=== PATIENT | female | born 1960 | race Caucasian/White ===

== ENCOUNTER 2019-05-30 08:58 | Outpatient (CLI) | payer MEDICARE, SELFPAY ==
--- NOTE | ~2019-05-30 | MM_ITS ---
EXAMINATION: MM screening wilma BI w siddharth HISTORY: Screening mammogram TECHNIQUE: Craniocaudal and mediolateral oblique 3-D tomosynthesis images were obtained and synthetic 2-D images were generated. CAD analysis was submitted and interpreted. COMPARISON: Comparison to multiple prior studies sequentially, with oldest reviewed study dated 10/19. BREAST PARENCHYMAL COMPOSITION: There are scattered areas of fibroglandular density. FINDINGS: There is no evidence of suspicious mass, calcification, or architectural distortion to sugg est malignancy in either breast. There has been no suspicious interval change. IMPRESSION: 1. No mammographic evidence of malignancy. 2. Recommend routine screening mammography in one year. BI-RADS Category 1: Negative Reviewed, dictated and finalized at location A. ER PACKER
== END 2019-05-30 08:59 | disposition home or self-care (01) ==
LOC: ANHIMG 09:03
PROVIDERS: PCP Internal Medicine Gastroenterology; Visit Provider Internal Medicine Hematology & Oncology
DX: Z12.31 Encounter for screening mammogram for malignant neoplasm of breast (principal)
CPT/HCPCS: 77063; 77067

== ENCOUNTER 2019-05-30 09:32 | Outpatient (CLI) | payer MEDICARE, MEDICAID, SELFPAY ==
[2019-05-30 09:45] LABS: Basophils Absolute Auto 0.1 K/mm3 (0.0-0.1); Basophils Percent Auto 0.8 % (0.2-1.2); Eosinophils Absolute Auto 0.3 K/mm3 (0-0.3); Eosinophils Percent Auto 3.5 % (0-4.4); Hematocrit 41.1 % (37.0-47.0); Immature Granulocyte Absolute 0.03 K/mm3 (0.00-0.031); Immature Granulocyte Percent A 0.3 % (0-0.5); Lymphocytes Absolute Auto 2.97 K/mm3 (0.9-3.2); Lymphocytes Percent Auto 34.2 % (18.3-44.2); Mean Corpuscular HGB Conc 31.6 g/dl (32-36); Mean Corpuscular Hemoglobin 30.7 pg (26-34); Mean Corpuscular Volume 96.9 fl (80-100); Mean Platelet Volume 8.9 fl (7.4-10.4); Neutrophils Absolute Auto 4.4 K/mm3 (1.3-6.7); Neutrophils Percent Auto 50.2 % (45.5-73.1); Platelet Count Result 358 k/mm3 (150-375); Red Blood Count 4.24 M/mm3 (4.2-5.4); Red Cell Distribution Width 14.2 % (11.5-14.5); White Blood Count 8.7 K/mm3 (4.5-10.0)
[2019-05-30 11:29] LABS: Alanine Aminotransferase 15 U/L (4-35); Albumin Level 4.3 g/dL (3.5-5.1); Alkaline Phosphatase 63 U/L (38-126); Aspartate Amino Transferase 21 U/L (14-36); Bilirubin,Total 0.4 mg/dL (0.2-1.3); Blood Urea Nitrogen 17 mg/dL (7-17); Calcium 9.6 mg/dL (8.4-10.2); Carbon Dioxide 34 mmol/L (22-30); Chloride 100 mmol/L (98-107); Estimated Glomerular Filt Rate > 60; Glucose 86 mg/dL (65-105); Potassium 3.7 mmol/L (3.4-5.0); Sodium 138 mmol/L (137-145)
[2019-06-04 21:17] LABS: CA 27.29 31 U/mL (<38)
== END 2019-05-30 09:33 | disposition home or self-care (01) ==
PROVIDERS: PCP Internal Medicine Gastroenterology; Visit Provider Internal Medicine Hematology & Oncology
DX: C50.511 Malignant neoplasm of lower-outer quadrant of right female breast (principal); Z17.0 Estrogen receptor positive status [ER+]
CPT/HCPCS: 36415; 80053; 85025; 86300

== ENCOUNTER 2019-06-10 09:50 | Outpatient (CLI) | payer MEDICARE, MEDICAID, SELFPAY ==
--- NOTE | ~2019-06-10 | MR_ITS ---
EXAMINATION: MR femur RT wo/w con DATE: 06/10/2019 12:12 INDICATION: Breast cancer presenting with a soft tissue lesion at the anterolateral proximal right th igh. TECHNIQUE: Magnetic resonance imaging (MRI) of the proximal to mid right thigh/femur was performed wi thout intravenous contrast. A marker was placed over the mass. Sequences included axial, sagittal an d coronal T1-weighted FSE and fluid sensitive FSE STIR, axial T1-weighted FS FSE and post contrast ax ial and sagittal T1-weighted FS FSE. COMPARISON: Ultrasound dated 01/14/2019 FINDINGS: The marker indicating the mass of concern overlies the right tensor fascia shivam muscle belly which as ymmetrically enlarged relative to the contralateral left sided muscle belly. This is been reported as potential sequela of underlying abductor tendon tear. There is a chronic tear of the right gluteus m inimus tendon with heterotopic ossification at the anterior margin of the footplate of the tendon whi ch appears thickened distally. There is prominent fatty atrophy of the gluteus minimus muscle belly a lso consistent with chronic tear. There appears be a partial tear of the anterior gluteus medius tend on without associated muscular atrophy. There is a small likely intramuscular ganglion cyst with a th in peripheral rim of enhancement extending 2.5 cm inferiorly from the site of the gluteus minimus ten don tear into the proximal vastus lateralis musculature where it measures up to 10 x 8 mm in maximal transaxial dimensions. No solid enhancing soft tissue component or other abnormally enhancing lesions identified. The ganglion cyst also underlies the marker indicating the mass of concern but is likely too small given its depth to be discernible by physical exam. No right hip joint effusion. Bone magdalena ow signal is normal throughout.. IMPRESSION: 1. 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 2. 2.5 x 1.0 x 0.8 cm peripheral enhancing likely ganglion cyst in the proximal vastus lateralis musc le which appears to originate at the site of the tendon tear, likely too small and deep to represent the palpable abnormality of concern. No enhancing solid soft tissue component or other concerning enh ancing masses identified. Reviewed, dictated and finalized at location A. IMPRESSION: 1. 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 2. 2.5 x 1.0 x 0.8 cm peripheral enhancing likely ganglion cyst in the proximal vastus lateralis muscle which appears to originate at the site of the tendon t ear, likely too small and deep to represent the palpable abnormality of concern . No enhancing solid soft tissue component or other concerning enhancing masses identified.
[2019-06-10 11:03] LABS: Estimated Glomerular Filt Rate > 60
== END 2019-06-10 09:51 | disposition home or self-care (01) ==
PROVIDERS: PCP Internal Medicine Gastroenterology; Visit Provider Internal Medicine Gastroenterology
DX: M79.9 Soft tissue disorder, unspecified (principal)
CPT/HCPCS: 36415; 73720; A9577

== ENCOUNTER 2019-12-16 08:42 | Outpatient (CLI) | payer MEDICARE, MEDICAID, SELFPAY ==
[2019-12-16 09:00] LABS: Basophils Absolute Auto 0.1 K/mm3 (0.0-0.1); Basophils Percent Auto 1.1 % (0.2-1.2); Eosinophils Absolute Auto 0.3 K/mm3 (0-0.3); Eosinophils Percent Auto 4.6 % (0-4.4); Hematocrit 38.1 % (37.0-47.0); Hemoglobin 12.4 g/dL (12.0-15.0); Immature Granulocyte Absolute 0.02 K/mm3 (0.00-0.031); Immature Granulocyte Percent A 0.3 % (0-0.5); Lymphocytes Absolute Auto 2.76 K/mm3 (0.9-3.2); Lymphocytes Percent Auto 45.2 % (18.3-44.2); Mean Corpuscular HGB Conc 32.5 g/dl (32-36); Mean Corpuscular Volume 95.3 fl (80-100); Monocytes Absolute Auto 0.6 K/mm3 (0.1-0.6); Monocytes Percent Auto 10.5 % (2.6-8.5); Neutrophils Absolute Auto 2.3 K/mm3 (1.3-6.7); Neutrophils Percent Auto 38.3 % (45.5-73.1); Platelet Count Result 266 k/mm3 (150-375); Red Cell Distribution Width 13.3 % (11.5-14.5); White Blood Count 6.1 K/mm3 (4.5-10.0)
[2019-12-16 09:53] LABS: Alanine Aminotransferase 15 U/L (4-35); Alkaline Phosphatase 48 U/L (38-126); Anion Gap 3 mmol/L (8-16); Aspartate Amino Transferase 25 U/L (14-36); Bilirubin,Total 0.3 mg/dL (0.2-1.3); Blood Urea Nitrogen 24 mg/dL (7-17); Calcium 9.5 mg/dL (8.4-10.2); Carbon Dioxide 31 mmol/L (22-30); Chloride 103 mmol/L (98-107); Estimated Glomerular Filt Rate > 60; Glucose 92 mg/dL (65-105); Potassium 4.3 mmol/L (3.4-5.0); Sodium 137 mmol/L (137-145)
== END 2019-12-16 08:43 | disposition home or self-care (01) ==
PROVIDERS: PCP Internal Medicine Gastroenterology; Visit Provider Internal Medicine Hematology & Oncology
DX: C50.511 Malignant neoplasm of lower-outer quadrant of right female breast (principal)
CPT/HCPCS: 36415; 80053; 85025; 86300

== ENCOUNTER 2019-12-19 15:37 | Outpatient (CLI) | payer MEDICARE, MEDICAID, SELFPAY ==
[2019-12-25 11:45] LABS: CA 27.29 29 U/mL (<38)
== END 2019-12-19 15:38 | disposition home or self-care (01) ==
LOC: ANHLAB 15:39
PROVIDERS: PCP Internal Medicine Gastroenterology; Visit Provider Internal Medicine Hematology & Oncology
DX: C50.511 Malignant neoplasm of lower-outer quadrant of right female breast (principal)
CPT/HCPCS: 36415; 86300

== ENCOUNTER 2020-07-16 14:51 | Outpatient (CLI) | payer MEDICARE, MEDICAID, SELFPAY ==
[2020-07-16 15:15] LABS: Basophils Absolute Auto 0.1 K/mm3 (0.0-0.1); Basophils Percent Auto 0.8 % (0.2-1.2); Eosinophils Absolute Auto 0.1 K/mm3 (0-0.3); Eosinophils Percent Auto 1.2 % (0-4.4); Hematocrit 42.1 % (37.0-47.0); Hemoglobin 13.9 g/dL (12.0-15.0); Immature Granulocyte Absolute 0.02 K/mm3 (0.00-0.031); Immature Granulocyte Percent A 0.2 % (0-0.5); Lymphocytes Absolute Auto 2.46 K/mm3 (0.9-3.2); Mean Corpuscular Hemoglobin 31.6 pg (26-34); Mean Corpuscular Volume 95.7 fl (80-100); Mean Platelet Volume 9.1 fl (7.4-10.4); Monocytes Absolute Auto 0.7 K/mm3 (0.1-0.6); Monocytes Percent Auto 7.9 % (2.6-8.5); Neutrophils Absolute Auto 5.2 K/mm3 (1.3-6.7); Neutrophils Percent Auto 60.9 % (45.5-73.1); Platelet Count Result 344 k/mm3 (150-375); Red Cell Distribution Width 13.5 % (11.5-14.5); White Blood Count 8.5 K/mm3 (4.5-10.0)
[2020-07-16 16:44] LABS: Alanine Aminotransferase 16 U/L (4-35); Albumin Level 4.7 g/dL (3.5-5.1); Alkaline Phosphatase 58 U/L (38-126); Anion Gap 5 mmol/L (8-16); Aspartate Amino Transferase 26 U/L (14-36); Bilirubin,Total 0.4 mg/dL (0.2-1.3); Blood Urea Nitrogen 20 mg/dL (7-17); Calcium 9.3 mg/dL (8.4-10.2); Carbon Dioxide 32 mmol/L (22-30); Chloride 101 mmol/L (98-107); Estimated Glomerular Filt Rate > 60; Glucose 114 mg/dL (65-105); Potassium 4.9 mmol/L (3.4-5.0); Sodium 138 mmol/L (137-145)
[2020-07-19 08:16] LABS: CA 15-3 14 U/mL (<32)
== END 2020-07-16 14:52 | disposition home or self-care (01) ==
LOC: ANHLAB 14:55
PROVIDERS: PCP Internal Medicine Gastroenterology; Visit Provider Internal Medicine Hematology & Oncology
DX: C50.511 Malignant neoplasm of lower-outer quadrant of right female breast (principal); Z17.0 Estrogen receptor positive status [ER+]
CPT/HCPCS: 36415; 80053; 85025; 86300

== ENCOUNTER 2020-07-16 15:21 | Outpatient (CLI) | payer MEDICARE, MEDICAID, SELFPAY ==
--- NOTE | ~2020-07-16 | MM_ITS ---
EXAMINATION: MM screening wilma BI w siddharth HISTORY: Screening mammogram, history of right breast cancer TECHNIQUE: Craniocaudal and mediolateral oblique 3-D tomosynthesis images were obtained and synthetic 2-D images were generated. CAD analysis was submitted and interpreted. COMPARISON: 05/30/2019, 05/14/2018, 11/10/2017, 04/24/2017 BREAST PARENCHYMAL COMPOSITION: The breasts are heterogeneously dense, which may obscure small masses . FINDINGS: There are stable lumpectomy changes in the right breast. There is no evidence of suspicious mass, calcification, or architectural distortion to suggest malignancy in either breast. There has b een no suspicious interval change. IMPRESSION: 1. No mammographic evidence of malignancy. 2. Recommend routine screening mammography in one year. BI-RADS Category 2: Benign finding(s). Reviewed, dictated and finalized at location A.
== END 2020-07-16 15:22 | disposition home or self-care (01) ==
PROVIDERS: PCP Internal Medicine Gastroenterology; Visit Provider Internal Medicine Hematology & Oncology
DX: Z12.31 Encounter for screening mammogram for malignant neoplasm of breast (principal)
CPT/HCPCS: 36415; 77063; 77067; 80053; 85025; 86300

== ENCOUNTER 2020-12-02 09:11 | Outpatient (CLI) | payer MEDICARE, MEDICAID, SELFPAY ==
--- NOTE | ~2020-12-02 | CT_ITS ---
EXAMINATION: CT lung screening DATE: 12/02/2020 09:49 INDICATION: Personal history of nicotine dependence, current smoker with 35 pack year history, histor y of breast cancer TECHNIQUE: Computed tomography (CT) of the chest was performed without intravenous contrast. The dose -length product (DLP) was 60.10 mGy-cm. Automated exposure control and iterative reconstruction techn ique were employed. COMPARISON: None FINDINGS: There is severe emphysema. There is a 10 mm spiculated nodule with eccentric calcification in the left upper lobe (image 43). There is a 12 mm cavitary nodule in the right upper lobe on image 26. There is a 6 mm nodule with eccentric calcification in the right upper lobe on image 36. Multiple additional smaller noncalcified nodules are noted. There is no pleural effusion or pneumothorax. No pathologically enlarged thoracic lymph nodes are identified. The heart size is normal. There is mild thoracic spondylosis. Severe lower cervical spondylosis is noted. IMPRESSION: 1. Lung-RADS Category 0: Incomplete: Needs comparison to prior chest CT examinations. If unavailable, would recommend follow-up CT in three months. Reviewed, dictated and finalized at location B. IMPRESSION: 1. Lung-RADS Category 0: Incomplete: Needs comparison to prior chest CT examina tions. If unavailable, would recommend follow-up CT in three months.
== END 2020-12-02 09:12 | disposition home or self-care (01) ==
PROVIDERS: PCP Internal Medicine Gastroenterology; Visit Provider Internal Medicine Hematology & Oncology
DX: Z12.2 Encounter for screening for malignant neoplasm of respiratory organs (principal); Z87.891 Personal history of nicotine dependence
CPT/HCPCS: 71271

== ENCOUNTER 2020-12-23 00:44 | Day surgery (SDC) | payer MEDICARE, MEDICAID, SELFPAY ==
[2020-12-15 14:05] VITALS: BMI 20.1
--- NOTE | 2020-12-23 07:23 | PM.HPGS ---
History of Present Illness History of Present Illness Consent: Risks, benefits, and alternatives have been discussed and questions answered. Patient agrees to proceed with procedure. Chief complaint: positive cologuard Narrative: Jes Reilly is a 60 year old female referred for colon cancer screening. She was found have a positive Cologuard test Review of Systems Review of Systems: All systems reviewed & are unremarkable except as noted in HPI and below PMFSH Past Medical History Medical History COPD (chronic obstructive pulmonary disease) Depression History of right breast cancer Hypertension Thyroid disease Surgical History Surgical History Status post right breast lumpectomy Family History Family History Father COPD (chronic obstructive pulmonary disease) Unknown Heart disease Hypertension Social History Social History Smoking packs per day: 0.5 Smoking cigarettes per day: 10.0 Years smoked: 35 Smoking pack-years: 17.50 Smoking status: Current every day smoker Tobacco type: cigarettes Alcohol intake: current Living arrangements: with family Spiritual care concerns: No Meds Home Medications and Allergies Home Medications Medication Instructions Recorded Confirmed Type albuterol sulfate 90 mcg/actuation 1 puff INHALATION Q4H PRN 07/03/19 12/23/20 History aerosol inhaler anastrozole 1 mg tablet 1 mg PO DAILY 07/03/19 12/23/20 History lisinopril 20 1 tablet PO DAILY 07/03/19 12/23/20 History mg-hydrochlorothiazide 12.5 mg tablet prednisone 5 mg tablet 5 mg PO DAILY 07/03/19 12/23/20 History acetylcysteine 200 mg INHALATION DAILY 12/15/20 12/23/20 History albuterol sulfate 2.5 mg INHALATION BID 12/15/20 12/23/20 History clonazepam 1 mg PO BID 12/15/20 12/23/20 History glycopyrrolate-formoterol [Bevespi 4.8 inh INHALATION DAILY 12/15/20 12/23/20 History Aerosphere] levothyroxine 100 mcg PO DAILY 12/15/20 12/23/20 History sertraline 100 mg PO DAILY 12/15/20 12/23/20 History Allergies Allergy/AdvReac Type Severity Reaction Status Date / Time No Known Allergies Allergy Verified 12/23/20 10:10 Exam Resp: Auscultation: clear to auscultation bilaterally Cardio: Rate: regular rate Rhythm: regular rhythm GI: GI Palp: Yes Soft to palpation and No Tenderness to palpation present (GI) Assessment and Plan Assessment and plan (1) Colon cancer screening: Code(s): Z12.11 - Encounter for screening for malignant neoplasm of colon Status: Acute Assessment and Plan: Colonoscopy with possible biopsy or polypectomy or cautery or injection of substances.
[2020-12-23 10:12] VITALS: BP 95/59; PULSE 100; RESP 18; TEMP 36.6; O2SAT 100; BMI 19.8
[2020-12-23] MEDS: LACTATED RINGERS 1,000 ML 150 ML IV CONT (10:32)
--- NOTE | 2020-12-23 10:48 | WPDANESEPPF ---
Anes - Initial Pre Proc Eval Procedure: Operation Date: 12/23/20 11:00 Proposed Procedures p Colonoscopy - Harvinder High MD Date/Time: 12/23/20 10:48 Surgeon: Harvinder High MD Pre Op Diagnosis: positive cologuard Patient Data Age: 60 Gender: F Height: 1.57 m Weight: 49.1 kg Last Vital Signs Temp 97.9 F 12/23/20 10:12 Pulse 100 12/23/20 10:12 Resp 18 12/23/20 10:12 BP 95/59 L 12/23/20 10:12 Pulse Ox 100 12/23/20 10:12 Allergies Allergy/AdvReac Type Severity Reaction Status Date / Time No Known Allergies Allergy Verified 12/23/20 10:10 Home Medications Medication Instructions Recorded Confirmed Type albuterol sulfate 90 mcg/actuation 1 puff INHALATION Q4H PRN 07/03/19 12/23/20 History aerosol inhaler anastrozole 1 mg tablet 1 mg PO DAILY 07/03/19 12/23/20 History lisinopril 20 1 tablet PO DAILY 07/03/19 12/23/20 History mg-hydrochlorothiazide 12.5 mg tablet prednisone 5 mg tablet 5 mg PO DAILY 07/03/19 12/23/20 History acetylcysteine 200 mg INHALATION DAILY 12/15/20 12/23/20 History albuterol sulfate 2.5 mg INHALATION BID 12/15/20 12/23/20 History clonazepam 1 mg PO BID 12/15/20 12/23/20 History glycopyrrolate-formoterol [Bevespi 4.8 inh INHALATION DAILY 12/15/20 12/23/20 History Aerosphere] levothyroxine 100 mcg PO DAILY 12/15/20 12/23/20 History sertraline 100 mg PO DAILY 12/15/20 12/23/20 History Patient hx anesthesia problems: none Family hx anesthesia problems: none Results Review: All pre-operative results and documents have been reviewed as part of the pre-operative evaluation. [facility] Past Medical History Medical History (Updated 12/23/20 @ 07:24 by Harvinder High MD) COPD (chronic obstructive pulmonary disease) Depression History of right breast cancer Hypertension Thyroid disease Surgical History Surgical History Status post right breast lumpectomy Family History Family History Father COPD (chronic obstructive pulmonary disease) Unknown Heart disease Hypertension Social History Social History Smoking packs per day: 0.5 Smoking cigarettes per day: 10.0 Years smoked: 35 Smoking pack-years: 17.50 Smoking status: Current every day smoker Tobacco type: cigarettes Alcohol intake: current Living arrangements: with family Spiritual care concerns: No Anes - Eval Final PreProcedure Day of Procedure 12/23/20 10:48 Patient weight: normal Heart: regular rate and rhythm Lungs: clear to auscultation Airway: Mallampati scale class II Neurological: alert and oriented Last oral intake: >/= 8 hours ASA classification: III Emergent: no Anesthetic plan: proceed Anesthesia type and monitoring: general GIVS and standard monitoring Results Review: All pre-operative results and documents have been reviewed as part of the pre-operative evaluation. Informed Consent: The patient's anesthetic plan and its attendant risks and benefits were discussed with the patient/family/POA. Questions were solicited and answers provided to the satisfaction of the patient/family/POA.
[2020-12-23 11:25] VITALS: BP 82/43; PULSE 79; RESP 27; O2SAT 100
[2020-12-23 11:35] VITALS: BP 81/44; PULSE 79; RESP 29; O2SAT 100
[2020-12-23 11:45] VITALS: BP 118/61; PULSE 78; RESP 31; O2SAT 95
== END 2020-12-23 12:06 | disposition home or self-care (01) ==
PROVIDERS: PCP Internal Medicine Gastroenterology; Visit Provider Internal Medicine Gastroenterology
PROC: 0DJD8ZZ Inspection of Lower Intestinal Tract, Via Natural or Artificial Opening Endoscopic (ICD-10-PCS; CPT 45378; principal; 2020-12-23 11:00)
DX: Z12.11 Encounter for screening for malignant neoplasm of colon (principal); R19.5 Other fecal abnormalities; J44.9 Chronic obstructive pulmonary disease, unspecified; I10 Essential (primary) hypertension; E07.9 Disorder of thyroid, unspecified; F32.9 Major depressive disorder, single episode, unspecified; Z85.3 Personal history of malignant neoplasm of breast; Z79.51 Long term (current) use of inhaled steroids; Z79.811 Long term (current) use of aromatase inhibitors; F17.210 Nicotine dependence, cigarettes, uncomplicated
CPT/HCPCS: G0121; J2704; J7120

== ENCOUNTER 2021-01-14 09:31 | Outpatient (CLI) | payer MEDICARE, MEDICAID, SELFPAY ==
[2021-01-14 09:47] LABS: Basophils Absolute Auto 0.1 K/mm3 (0.0-0.1); Basophils Percent Auto 1.4 % (0.2-1.2); Eosinophils Absolute Auto 0.6 K/mm3 (0-0.3); Eosinophils Percent Auto 7.4 % (0-4.4); Hematocrit 40.8 % (37.0-47.0); Hemoglobin 12.9 g/dL (12.0-15.0); Immature Granulocyte Absolute 0.01 K/mm3 (0.00-0.031); Immature Granulocyte Percent A 0.1 % (0-0.5); Lymphocytes Absolute Auto 2.34 K/mm3 (0.9-3.2); Lymphocytes Percent Auto 31.7 % (18.3-44.2); Mean Corpuscular HGB Conc 31.6 g/dl (32-36); Mean Corpuscular Hemoglobin 30.3 pg (26-34); Mean Corpuscular Volume 95.8 fl (80-100); Monocytes Absolute Auto 0.7 K/mm3 (0.1-0.6); Monocytes Percent Auto 9.7 % (2.6-8.5); Neutrophils Absolute Auto 3.7 K/mm3 (1.3-6.7); Neutrophils Percent Auto 49.7 % (45.5-73.1); Platelet Count Result 314 k/mm3 (150-375); Red Blood Count 4.26 M/mm3 (4.2-5.4); Red Cell Distribution Width 12.8 % (11.5-14.5); White Blood Count 7.4 K/mm3 (4.5-10.0)
[2021-01-14 10:48] LABS: Alanine Aminotransferase 14 U/L (4-35); Albumin Level 4.4 g/dL (3.5-5.1); Alkaline Phosphatase 64 U/L (38-126); Anion Gap 6 mmol/L (8-16); Aspartate Amino Transferase 28 U/L (14-36); Bilirubin,Total 0.5 mg/dL (0.2-1.3); Blood Urea Nitrogen 15 mg/dL (7-17); Calcium 9.5 mg/dL (8.4-10.2); Carbon Dioxide 37 mmol/L (22-30); Chloride 98 mmol/L (98-107); Estimated Glomerular Filt Rate > 60; Glucose 92 mg/dL (65-110); Potassium 3.6 mmol/L (3.4-5.0); Sodium 141 mmol/L (137-145)
[2021-01-18 15:05] LABS: CA 15-3 13 U/mL (<32)
== END 2021-01-14 09:32 | disposition home or self-care (01) ==
LOC: ANHLAB 09:33
PROVIDERS: PCP Internal Medicine Gastroenterology; Visit Provider Internal Medicine Hematology & Oncology
DX: C50.511 Malignant neoplasm of lower-outer quadrant of right female breast (principal)
CPT/HCPCS: 36415; 80053; 85025; 86300

== ENCOUNTER 2021-02-22 09:38 | Emergency (ER) | payer MEDICARE, MEDICAID, SELFPAY ==
[2021-02-22] VITALS (7 sets, daily range): BP systolic 103–143; BP diastolic 56–85; PULSE 76–108; RESP 16–28; TEMP 36.8; O2SAT 95–100
--- NOTE | ~2021-02-22 | XR_ITS ---
XR chest 2V 02/22/2021 09:59 Indication: Dyspnea Procedure: PA and lateral views of the chest Comparison: 06/04/2018 Findings: Heart size normal. There are a few small calcified granulomas of the lung parenchyma. No fo barbara air space disease, pulmonary edema, pleural effusion or suspected pneumothorax. The lungs are hyp erinflated which is consistent with, but not diagnostic of chronic obstructive pulmonary disease. Impression: 1: No acute cardiopulmonary disease. Reviewed, dictated and finalized at location B. ICENOW ADMINISTRATOR Impression: 1: No acute cardiopulmonary disease.
--- NOTE | 2021-02-22 09:51 | ECG_ITS ---
Measurements Intervals [place] Rate: 100 P: 87 FL: 128 QRS: 81 QRSD: 80 T: 65 QT: 324 QTc: 419 Interpretive Statements SINUS TACHYCARDIA DELAYED PRECORDIAL R/S TRANSITION NONSPECIFIC ST & T-WAVE ABNORMALITY- INF/HIGH LAT LEADS BASELINE ARTIFACT- I, II, III, AVR, AVL, AVF, V1, V3, V5-V6 BORDERLINE ECG Electronically Signed On 02-22-2021 10:40:01 INTERN BRAND by Andrew Alejandre D.O.
[2021-02-22 10:09] LABS: Basophils Absolute Auto 0.1 K/mm3 (0.0-0.1); Basophils Percent Auto 0.5 % (0.2-1.2); Eosinophils Absolute Auto 0.3 K/mm3 (0-0.3); Eosinophils Percent Auto 2.6 % (0-4.4); Hemoglobin 12.6 g/dL (12.0-15.0); Immature Granulocyte Absolute 0.04 K/mm3 (0.00-0.031); Immature Granulocyte Percent A 0.3 % (0-0.5); Lymphocytes Percent Auto 11.5 % (18.3-44.2); Mean Corpuscular HGB Conc 32.3 g/dl (32-36); Mean Corpuscular Hemoglobin 30.1 pg (26-34); Mean Corpuscular Volume 93.1 fl (80-100); Mean Platelet Volume 10.4 fl (7.4-10.4); Monocytes Absolute Auto 0.8 K/mm3 (0.1-0.6); Monocytes Percent Auto 6.3 % (2.6-8.5); Neutrophils Absolute Auto 9.6 K/mm3 (1.3-6.7); Neutrophils Percent Auto 78.8 % (45.5-73.1); Platelet Count Result 310 k/mm3 (150-375); Red Blood Count 4.19 M/mm3 (4.2-5.4); Red Cell Distribution Width 12.8 % (11.5-14.5); White Blood Count 12.2 K/mm3 (4.5-10.0)
[2021-02-22 10:26] LABS: Alanine Aminotransferase 17 U/L (4-35); Albumin Level 4.3 g/dL (3.5-5.1); Alkaline Phosphatase 78 U/L (38-126); Anion Gap 5 mmol/L (8-16); Aspartate Amino Transferase 25 U/L (14-36); Bilirubin,Total 0.5 mg/dL (0.2-1.3); Blood Urea Nitrogen 16 mg/dL (7-17); Calcium 9.3 mg/dL (8.4-10.2); Carbon Dioxide 34 mmol/L (22-30); Chloride 96 mmol/L (98-107); Estimated CRCL calculation 48 ml/min; Estimated Glomerular Filt Rate > 60; Glucose 102 mg/dL (65-110); Potassium 3.4 mmol/L (3.4-5.0); Sodium 135 mmol/L (137-145)
[2021-02-22] MEDS: methylPREDNISolone SOD SUCC 125 MG VIAL IV PUSH (12:26)
--- NOTE | 2021-02-22 12:45 | ED.SOB ---
HPI - SOB/Dyspnea General Chief Complaint: Shortness of Breath/Dyspnea Stated Complaint: SOB. Time Seen by Provider: 02/22/21 12:03 History of Present Illness HPI Narrative: Patient is a 60-year-old female who presents ER with shortness of breath. She reports she has chronic shortness of breath due to sarcoidosis. She wears 3 L of oxygen at baseline. She reports she is still able to ambulate about her house and perform her ADLs. She reports her shortness of breath worsened over the last 3 weeks. She is using her nebulizer 2 times a day and then using her other scheduled medications. No new fevers or chills or sweats. No chest pain or chest pressure. 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 She takes prednisone 5 mg daily at baseline. Patient is also reporting chronic abdominal discomfort where she feels crampy and nauseous. She sees Dr. High for this. She recently underwent colonoscopy that was unremarkable. She has not yet followed up with him. Related Data Home Medications Medication Instructions Recorded Confirmed albuterol sulfate 90 mcg/actuation 1 puff INHALATION Q4H PRN 07/03/19 12/23/20 aerosol inhaler anastrozole 1 mg tablet 1 mg PO DAILY 07/03/19 12/23/20 lisinopril 20 1 tablet PO DAILY 07/03/19 12/23/20 mg-hydrochlorothiazide 12.5 mg tablet prednisone 5 mg tablet 5 mg PO DAILY 07/03/19 12/23/20 Bevespi Aerosphere 4.8 inh INHALATION BID 12/15/20 12/23/20 acetylcysteine 200 mg INHALATION DAILY 12/15/20 12/23/20 albuterol sulfate 2.5 mg INHALATION DAILY 12/15/20 12/23/20 clonazepam 1 mg PO PRN PRN 12/15/20 12/23/20 levothyroxine 100 mcg PO DAILY 12/15/20 12/23/20 sertraline 50 mg PO DAILY 12/15/20 12/23/20 Allergies Allergy/AdvReac Type Severity Reaction Status Date / Time No Known Allergies Allergy Verified 02/22/21 12:34 Review of Systems Review of Systems: All systems reviewed & are unremarkable except as noted in HPI and below Constitutional: Constitutional: Denies chills, Reports fatigue and Denies fever(s) ENT: Denies nasal congestion and Denies sore throat Cardiovascular: Cardiovascular: Denies chest pain, Denies rapid heart rate and Denies radiating jaw, neck or arm pain Respiratory: Respiratory: Reports cough, Reports dyspnea and Reports wheezing Gastrointestinal: Gastrointestinal: Reports abdominal pain, Denies diarrhea, Reports nausea and Denies vomiting Genitourinary: Genitourinary: Denies nocturia, Denies dysuria and Denies flank pain PMFSH Past Medical History Medical History (Updated 02/22/21 @ 13:51 by Nabeel Fontenot MD) COPD (chronic obstructive pulmonary disease) Depression History of right breast cancer Hypertension Thyroid disease Surgical History Surgical History Status post right breast lumpectomy Family History Family History Father COPD (chronic obstructive pulmonary disease) Unknown Heart disease Hypertension Social History Social History Smoking packs per day: 0.5 Smoking cigarettes per day: 10.0 Years smoked: 35 Smoking pack-years: 17.50 Smoking status: Current every day smoker Tobacco type: cigarettes Alcohol intake: current Spiritual care concerns: No Exam Narrative: GENERAL: Chronically ill-appearing, well-nourished, and in no acute distress. HEAD: Normocephalic, atraumatic. ENT: Mucous membranes moist. CHEST: Scattered rhonchi/wheezing with expiration. No respiratory distress. HEART: Tachycardic and regular. Normal peripheral pulses. ABDOMEN: Soft, nontender, nondistended. EXTREMITIES: Normal range of motion. No edema. SKIN: Warm, dry, no rash. NEURO: Alert and oriented x3. PSYCH: Normal mood and affect. Course Course Emergency Course: Patient's lung sounds are clear after an hour-long breathing treatment. She feels much improved. Patient
[2021-02-22] MEDS: IPRATROPIUM BR 0.02% INH SOLN 0.5 MG/2.5 ML VIAL 1.5 MG INHALATION (12:47)
[2021-02-22] MEDS: ALBUTEROL SULFATE NEB 2.5 MG/0.5 ML INH 15 MG INHALATION (12:47)
== END 2021-02-22 14:00 | disposition home or self-care (01) ==
PROVIDERS: Emergency Medicine; Emergency Provider Emergency Medicine; PCP Internal Medicine Gastroenterology
DX: J44.1 Chronic obstructive pulmonary disease with (acute) exacerbation (principal); D86.9 Sarcoidosis, unspecified; I10 Essential (primary) hypertension; E07.9 Disorder of thyroid, unspecified; Z85.3 Personal history of malignant neoplasm of breast; R94.31 Abnormal electrocardiogram [ECG] [EKG]; R00.0 Tachycardia, unspecified; F17.210 Nicotine dependence, cigarettes, uncomplicated
CPT/HCPCS: 36415; 71046; 80053; 85025; 93005; 96374; 99284; J2930

== ENCOUNTER 2021-05-05 09:29 | Outpatient (CLI) | payer MEDICARE, MEDICAID, SELFPAY ==
--- NOTE | ~2021-05-05 | CT_ITS ---
EXAMINATION:CT diagnostic chest w con DATE: 05/05/2021 10:05 INDICATION: Lung nodule. TECHNIQUE: Computed tomography (CT) of the chest was performed with 75 mL Omnipaque 350 intravenous c ontrast. Automated exposure control and iterative reconstruction technique were employed. The dose-le ngth product (DLP) was 133.52 mGy-cm. COMPARISON: Chest CT 12/02/2020 FINDINGS: There is mild scarring at the lung apices. There is severe emphysema. There is a stable 12 mm nodule in right upper lobe. Again seen is a 5 mm nodule in right upper lobe. There is mild bronchi ectasis in the inferior lungs. There is a 9 mm nodule in left upper lobe without change. There is a 1 2 mm nodule left upper lobe without change. Calcified bilateral lung nodules are consistent with old granulomatous disease. There are a few nodules in the lungs measuring up to 5 mm, some of which have worsened. No pleural effusion. The heart size is normal. No pericardial effusion. There is mild thora cic spondylosis. IMPRESSION: 1. Lung-RADS category 3: Probably benign. Further evaluation is recommended with noncontrast low-dose chest CT in 6 months. Reviewed, dictated and finalized at location E. KDOWN PERSON IMPRESSION: 1. Lung-RADS category 3: Probably benign. Further evaluation is recommended wit h noncontrast low-dose chest CT in 6 months.
[2021-05-05 10:00] LABS: Estimated Glomerular Filt Rate > 60
== END 2021-05-05 09:30 | disposition home or self-care (01) ==
PROVIDERS: PCP Internal Medicine Gastroenterology; Visit Provider Internal Medicine Hematology & Oncology
DX: R91.1 Solitary pulmonary nodule (principal); J47.9 Bronchiectasis, uncomplicated; M47.814 Spondylosis without myelopathy or radiculopathy, thoracic region
CPT/HCPCS: 71260; Q9967

== ENCOUNTER 2021-05-05 10:16 | Outpatient (CLI) | payer MEDICARE, MEDICAID, SELFPAY ==
[2021-05-05 10:59] LABS: Basophils Absolute Auto 0.1 K/mm3 (0.0-0.1); Basophils Percent Auto 1.1 % (0.2-1.2); Eosinophils Absolute Auto 0.5 K/mm3 (0-0.3); Eosinophils Percent Auto 6.4 % (0-4.4); Hematocrit 43.2 % (37.0-47.0); Hemoglobin 13.1 g/dL (12.0-15.0); Immature Granulocyte Absolute 0.02 K/mm3 (0.00-0.031); Immature Granulocyte Percent A 0.3 % (0-0.5); Lymphocytes Absolute Auto 1.89 K/mm3 (0.9-3.2); Lymphocytes Percent Auto 26.3 % (18.3-44.2); Mean Corpuscular HGB Conc 30.3 g/dl (32-36); Mean Corpuscular Hemoglobin 29.8 pg (26-34); Mean Corpuscular Volume 98.4 fl (80-100); Mean Platelet Volume 9.4 fl (7.4-10.4); Monocytes Absolute Auto 0.6 K/mm3 (0.1-0.6); Monocytes Percent Auto 8.8 % (2.6-8.5); Neutrophils Absolute Auto 4.1 K/mm3 (1.3-6.7); Neutrophils Percent Auto 57.1 % (45.5-73.1); Platelet Count Result 324 k/mm3 (150-375); Red Blood Count 4.39 M/mm3 (4.2-5.4); Red Cell Distribution Width 14.5 % (11.5-14.5); White Blood Count 7.2 K/mm3 (4.5-10.0)
[2021-05-05 13:18] LABS: Alanine Aminotransferase 21 U/L (4-35); Albumin Level 4.4 g/dL (3.5-5.1); Alkaline Phosphatase 64 U/L (38-126); Anion Gap 3 mmol/L (8-16); Aspartate Amino Transferase 42 U/L (14-36); Bilirubin,Total 0.5 mg/dL (0.2-1.3); Blood Urea Nitrogen 22 mg/dL (7-17); Calcium 9.4 mg/dL (8.4-10.2); Carbon Dioxide 34 mmol/L (22-30); Chloride 100 mmol/L (98-107); Estimated Glomerular Filt Rate > 60; Glucose 99 mg/dL (65-110); Potassium 3.9 mmol/L (3.4-5.0); Sodium 137 mmol/L (137-145)
[2021-05-05 13:30] LABS: Free T4 Free Thyroxine 2.18 ng/mL (0.78-2.19)
[2021-05-05 13:45] LABS: Thyroid Stimulating Hormone < 0.015 uIU/mL (0.465-4.680)
[2021-05-09 07:17] LABS: CA 15-3 12 U/mL (<32)
== END 2021-05-05 10:17 | disposition home or self-care (01) ==
PROVIDERS: PCP Internal Medicine Gastroenterology; Visit Provider Internal Medicine Hematology & Oncology
DX: C50.511 Malignant neoplasm of lower-outer quadrant of right female breast (principal); E03.9 Hypothyroidism, unspecified
CPT/HCPCS: 36415; 71260; 80053; 84439; 84443; 84481; 85025; 86300; Q9967

== ENCOUNTER 2021-06-03 09:07 | Outpatient (CLI) | payer MEDICARE, MEDICAID, SELFPAY ==
--- NOTE | ~2021-06-03 | PE_ITS ---
EXAMINATION: PET skull to mid thigh DATE: 06/03/2021 11:04 INDICATION: Lung nodule. TECHNIQUE: Blood glucose level was 100 mg/dL. 8.552 mCi of 18-fluorodeoxyglucose (18-FDG) was adminis tered i.v. Low dose computed tomography (CT) images were acquired from the base of the brain to the p roximal thighs for attenuation correction and anatomic localization. Automated exposure control was e mployed. Dose-length product (DLP) was 206 mGy-cm. Positron emission tomography (PET) images were acq uired in the same distribution. COMPARISON: Chest CT 05/05/2021, 12/02/2020 FINDINGS: Head/neck: There is increased activity in the pharynx, paraspinal muscles, and glottis without abnorm al CT correlate, likely physiologic. There is increased activity in the area of the left carotid spac e and left high internal jugular lymph node chain with maximum SUV of 4.4. Chest: There is mild scarring at the lung apices. There is severe emphysema. Calcified pulmonary nodu les are consistent with old granulomatous disease. There are a few nodules in the lungs measuring up to 12 mm in left upper lobe without increased activity. No pleural effusion. The heart size is normal . There are coronary artery calcifications. No pericardial effusion. Abdomen/pelvis/proximal thighs: The liver, gallbladder, spleen, pancreas, adrenal glands, and kidneys are normal. There are no dilated loops of bowel. There are no pathologically enlarged lymph nodes. T here is no free intraperitoneal fluid. There is no osseous malignancy. IMPRESSION: 1. Pulmonary nodules measuring up to 12 mm without increased activity. The larger nodules are stable from 12/02/20. These findings are probably benign. Further evaluation is recommended with noncontrast l ow-dose chest CT in 6 months. 2. Increased activity in the area of the left carotid space and left high internal jugular lymph node chain. It is not clear if this may represent normal vascular activity or abnormal lymph node activit y. Neck CT with contrast is recommended to better define the anatomy. 3. Severe emphysema. Reviewed, dictated and finalized at location A. CY OWNER IMPRESSION: 1. Pulmonary nodules measuring up to 12 mm without increased activity. The larg er nodules are stable from 12/02/20. These findings are probably benign. Further evaluation is recommended with noncontrast low-dose chest CT in 6 months. 2. Increased activity in the area of the left carotid space and left high inter nal jugular lymph node chain. It is not clear if this may represent normal vasc ular activity or abnormal lymph node activity. Neck CT with contrast is recomme nded to better define the anatomy. 3. Severe emphysema.
[2021-06-03 09:48] LABS: Glucose Point of Care 100 mg/dl (65-105)
== END 2021-06-03 09:08 | disposition home or self-care (01) ==
PROVIDERS: PCP Internal Medicine Gastroenterology; Visit Provider Internal Medicine Hematology & Oncology
DX: R91.8 Other nonspecific abnormal finding of lung field (principal); J43.9 Emphysema, unspecified
CPT/HCPCS: 78815; A9552

== ENCOUNTER 2021-08-12 09:42 | Outpatient (CLI) | payer MEDICARE, MEDICAID, SELFPAY ==
--- NOTE | ~2021-08-12 | CT_ITS ---
EXAMINATION: CT soft tissue neck w con DATE: 08/12/2021 10:33 INDICATION: Left neck lymphadenopathy. TECHNIQUE: Computed tomography (CT) of the neck was performed with 75 mL Omnipaque 300 intravenous co ntrast. Automated exposure control and iterative reconstruction technique were employed. The dose-refugio gth product was 199.57 mGy-cm. COMPARISON: Chest CT 05/05/2021, PET CT 06/03/2021 FINDINGS: The lungs apices demonstrate severe emphysema. Calcified left lung nodules are consistent w ith old granulomatous disease. There are a few nodules in the lungs measuring up to 11 mm in right up per lobe. There are no pathologically enlarged lymph nodes. There is plaque in the proximal internal carotid arteries with 0% stenosis relative to normal distal artery lumen diameters. There is moderate cervical spondylosis. IMPRESSION: 1. No cervical lymphadenopathy. 2. Stable pulmonary nodules without increased activity on prior PET, likely benign. 3. Severe emphysema. Reviewed, dictated and finalized at location A. IMPRESSION: 1. No cervical lymphadenopathy. 2. Stable pulmonary nodules without increased activity on prior PET, likely garo ign. 3. Severe emphysema.
[2021-08-12 10:21] LABS: Estimated Glomerular Filt Rate > 60
== END 2021-08-12 09:43 | disposition home or self-care (01) ==
PROVIDERS: PCP Internal Medicine Gastroenterology; Visit Provider Internal Medicine Hematology & Oncology
DX: R91.1 Solitary pulmonary nodule (principal); R59.0 Localized enlarged lymph nodes; J43.9 Emphysema, unspecified
CPT/HCPCS: 70491; Q9967

== ENCOUNTER 2021-08-24 09:21 | Outpatient (CLI) | payer MEDICARE, MEDICAID, SELFPAY ==
--- NOTE | ~2021-08-24 | MM_ITS ---
EXAMINATION: MM screening wilma BI w siddharth HISTORY: Screening mammogram TECHNIQUE: Craniocaudal and mediolateral oblique 3-D tomosynthesis images were obtained and synthetic 2-D images were generated. CAD analysis was submitted and interpreted. COMPARISON: 07/16/2020, 05/30/2019, 05/14/2018 bilateral mammogram examinations BREAST PARENCHYMAL COMPOSITION: The breasts are heterogeneously dense, which may obscure small masses . FINDINGS: Postoperative change from right partial mastectomy for history of breast cancer is again no ifeanyi. There is no evidence of suspicious mass, calcification, or interval architectural distortion to suggest malignancy in either breast. There has been no suspicious interval change. IMPRESSION: 1. No mammographic evidence of malignancy. 2. Recommend routine screening mammography in one year. BI-RADS Category 2: Benign finding(s). Reviewed, dictated and finalized at location A.
== END 2021-08-24 09:22 | disposition home or self-care (01) ==
PROVIDERS: PCP Internal Medicine Gastroenterology; Visit Provider Internal Medicine Hematology & Oncology
DX: Z12.31 Encounter for screening mammogram for malignant neoplasm of breast (principal)
CPT/HCPCS: 77063; 77067

== ENCOUNTER 2021-09-14 09:29 | Outpatient (CLI) | payer MEDICARE, MEDICAID, SELFPAY ==
--- NOTE | ~2021-09-14 | CT_ITS ---
EXAMINATION: CT diagnostic chest wo con DATE: 09/14/2021 10:00 INDICATION: Lung nodule TECHNIQUE: Computed tomography (CT) of the chest was performed without intravenous contrast. The dose -length product (DLP) was 141.95 mGy-cm. Automated exposure control and iterative reconstruction tech [employer] were employed. COMPARISON: 06/03/2021, 05/05/2021, 12/02/2020 FINDINGS: There is severe emphysema. There are multiple stable nodules of the lungs, some of which ar e calcified. The largest measures 12 mm in the left upper lobe. There is a 5 mm nodule in the right l ower lobe on image 66 not definitely seen on the prior examination, likely infectious or inflammatory given the short interval between examinations. No pleural effusion or pneumothorax. No pathologicall y enlarged thoracic lymph nodes are identified. The heart size is normal. There is mild thoracic spon dylosis. IMPRESSION: 1. Multiple stable pulmonary nodules. Annual lung cancer screening CT is recommended. 2. Severe emphysema. Reviewed, dictated and finalized at location A. IMPRESSION: 1. Multiple stable pulmonary nodules. Annual lung cancer screening CT is recomm ended. 2. Severe emphysema.
== END 2021-09-14 09:30 | disposition home or self-care (01) ==
PROVIDERS: PCP Internal Medicine Gastroenterology; Visit Provider Internal Medicine Hematology & Oncology
DX: R91.8 Other nonspecific abnormal finding of lung field (principal); J43.9 Emphysema, unspecified
CPT/HCPCS: 36415; 71250; 80053; 85025; 86300

== ENCOUNTER 2021-09-14 10:05 | Outpatient (CLI) | payer MEDICARE, MEDICAID, SELFPAY ==
[2021-09-14 10:29] LABS: Basophils Absolute Auto 0.1 K/mm3 (0.0-0.1); Eosinophils Absolute Auto 0.2 K/mm3 (0-0.3); Eosinophils Percent Auto 2.2 % (0-4.4); Hematocrit 40.9 % (37.0-47.0); Hemoglobin 12.8 g/dL (12.0-15.0); Immature Granulocyte Absolute 0.02 K/mm3 (0.00-0.031); Immature Granulocyte Percent A 0.3 % (0-0.5); Lymphocytes Absolute Auto 1.01 K/mm3 (0.9-3.2); Lymphocytes Percent Auto 13.1 % (18.3-44.2); Mean Corpuscular HGB Conc 31.3 g/dl (32-36); Mean Corpuscular Hemoglobin 30.1 pg (26-34); Mean Corpuscular Volume 96.2 fl (80-100); Monocytes Absolute Auto 0.3 K/mm3 (0.1-0.6); Monocytes Percent Auto 3.8 % (2.6-8.5); Neutrophils Absolute Auto 6.2 K/mm3 (1.3-6.7); Neutrophils Percent Auto 79.6 % (45.5-73.1); Platelet Count Result 280 k/mm3 (150-375); Red Blood Count 4.25 M/mm3 (4.2-5.4); Red Cell Distribution Width 13.8 % (11.5-14.5); White Blood Count 7.7 K/mm3 (4.5-10.0)
[2021-09-14 14:53] LABS: Alanine Aminotransferase 22 U/L (6-35); Albumin Level 4.4 g/dL (3.5-5.1); Alkaline Phosphatase 60 U/L (38-126); Anion Gap 3 mmol/L (8-16); Aspartate Amino Transferase 28 U/L (14-36); Bilirubin,Total 0.3 mg/dL (0.2-1.3); Blood Urea Nitrogen 20 mg/dL (7-17); Calcium 9.2 mg/dL (8.4-10.2); Carbon Dioxide 34 mmol/L (22-30); Chloride 102 mmol/L (98-107); Estimated Glomerular Filt Rate > 60; Glucose 113 mg/dL (65-110); Potassium 4.1 mmol/L (3.4-5.0); Sodium 139 mmol/L (137-145)
[2021-09-17 11:31] LABS: CA 15-3 18 U/mL (<32)
== END 2021-09-14 10:06 | disposition home or self-care (01) ==
PROVIDERS: PCP Internal Medicine Gastroenterology; Visit Provider Internal Medicine Hematology & Oncology
DX: C50.511 Malignant neoplasm of lower-outer quadrant of right female breast (principal); Z17.0 Estrogen receptor positive status [ER+]
CPT/HCPCS: 36415; 80053; 85025; 86300

== ENCOUNTER 2021-10-13 10:49 | Outpatient (CLI) | payer MEDICARE, SELFPAY ==
[2021-10-13 12:01] LABS: Hematocrit 39.7 % (37.0-47.0); Hemoglobin 13.1 g/dL (12.0-15.0); Mean Corpuscular Hemoglobin 31.3 pg (26-34); Mean Platelet Volume 11.6 fl (7.4-10.4); Platelet Count Result 204 k/mm3 (150-375); Red Blood Count 4.18 M/mm3 (4.2-5.4); Red Cell Distribution Width 13.4 % (11.5-14.5); White Blood Count 8.5 K/mm3 (4.5-10.0)
[2021-10-13 12:16] LABS: Alanine Aminotransferase 21 U/L (6-35); Albumin Level 4.5 g/dL (3.5-5.1); Alkaline Phosphatase 56 U/L (38-126); Anion Gap 5 mmol/L (8-16); Aspartate Amino Transferase 29 U/L (14-36); Bilirubin,Total 0.4 mg/dL (0.2-1.3); Blood Urea Nitrogen 17 mg/dL (7-17); Carbon Dioxide 35 mmol/L (22-30); Chloride 100 mmol/L (98-107); Estimated Glomerular Filt Rate > 60; Glucose 107 mg/dL (65-110); Potassium 3.9 mmol/L (3.4-5.0); Sodium 140 mmol/L (137-145)
[2021-10-13 12:45] LABS: Thyroid Stimulating Hormone < 0.015 uIU/mL (0.465-4.680)
[2021-10-16 15:03] LABS: Hepatitis C RNA, Quant PCR <15 IU/mL
[2021-10-19 10:00] LABS: Tissue Transglutaminase IgA Ab <1.0 U/mL (<15.0)
[2021-10-19 18:51] LABS: Tissue Transglutaminase IgG Ab <1.0 U/mL (<15.0)
== END 2021-10-13 10:50 | disposition home or self-care (01) ==
LOC: ANHLAB 10:51
PROVIDERS: PCP Internal Medicine Gastroenterology; Visit Provider Nurse Practitioner Family
DX: R63.4 Abnormal weight loss (principal)
CPT/HCPCS: 36415; 80053; 83516; 84443; 85027; 87522

== ENCOUNTER 2022-03-10 09:40 | Outpatient (CLI) | payer MEDICARE, SELFPAY ==
[2022-03-10 10:05] LABS: Basophils Absolute Auto 0.1 K/mm3 (0.0-0.1); Basophils Percent Auto 0.8 % (0.2-1.2); Eosinophils Absolute Auto 0.3 K/mm3 (0-0.3); Eosinophils Percent Auto 3.1 % (0-4.4); Hematocrit 39.5 % (37.0-47.0); Hemoglobin 12.6 g/dL (12.0-15.0); Immature Granulocyte Absolute 0.05 K/mm3 (0.00-0.031); Immature Granulocyte Percent A 0.5 % (0-0.5); Lymphocytes Absolute Auto 1.78 K/mm3 (0.9-3.2); Lymphocytes Percent Auto 17.8 % (18.3-44.2); Mean Corpuscular HGB Conc 31.9 g/dl (32-36); Mean Corpuscular Hemoglobin 31.3 pg (26-34); Mean Platelet Volume 8.6 fl (7.4-10.4); Monocytes Absolute Auto 0.7 K/mm3 (0.1-0.6); Monocytes Percent Auto 6.9 % (2.6-8.5); Neutrophils Absolute Auto 7.1 K/mm3 (1.3-6.7); Neutrophils Percent Auto 70.9 % (45.5-73.1); Platelet Count Result 285 k/mm3 (150-375); Red Blood Count 4.03 M/mm3 (4.2-5.4); Red Cell Distribution Width 13.1 % (11.5-14.5)
[2022-03-10 12:01] LABS: Alanine Aminotransferase 31 U/L (6-35); Albumin Level 4.4 g/dL (3.5-5.1); Alkaline Phosphatase 58 U/L (38-126); Anion Gap 5 mmol/L (8-16); Aspartate Amino Transferase 33 U/L (14-36); Bilirubin,Total 0.4 mg/dL (0.2-1.3); Blood Urea Nitrogen 16 mg/dL (7-17); Calcium 8.8 mg/dL (8.4-10.2); Carbon Dioxide 35 mmol/L (22-30); Chloride 101 mmol/L (98-107); Estimated Glomerular Filt Rate > 60; Glucose 95 mg/dL (65-110); Potassium 4.1 mmol/L (3.4-5.0); Sodium 141 mmol/L (137-145)
[2022-03-15 07:55] LABS: CA 15-3 15 U/mL (<32)
== END 2022-03-10 09:41 | disposition home or self-care (01) ==
LOC: ANHLAB 09:41
PROVIDERS: PCP Internal Medicine Gastroenterology; Visit Provider Internal Medicine Hematology & Oncology
DX: C50.511 Malignant neoplasm of lower-outer quadrant of right female breast (principal); Z17.0 Estrogen receptor positive status [ER+]
CPT/HCPCS: 36415; 80053; 85025; 86300

== ENCOUNTER 2022-09-08 08:36 | Outpatient (CLI) | payer MEDICARE, SELFPAY ==
--- NOTE | ~2022-09-08 | CT_ITS ---
EXAMINATION:CT diagnostic chest w con DATE: 09/08/2022 09:20 INDICATION: Lung nodule. Right breast cancer. TECHNIQUE: Computed tomography (CT) of the chest was performed with 75 mL Omnipaque 350 intravenous c ontrast. Automated exposure control and iterative reconstruction technique were employed. The dose-le ngth product (DLP) was 131.53 mGy-cm. COMPARISON: Chest CT 10/14/2021, 12/02/2020 FINDINGS: There is severe emphysema. There is a 4 mm nodule in right upper lobe with interval improve ment. Calcified bilateral lung nodules are consistent with old granulomatous disease. There is periph eral radiation fibrosis in right breast. There is a 9 mm nodule with eccentric calcification in left upper lobe, stable from 12/02/20, likely benign. No pleural effusion. The heart size is normal. No surya cardial effusion. There is chronic mild mediastinal lymphadenopathy, likely reactive. There is mild t horacic spondylosis. IMPRESSION: 1. Stable pulmonary nodules, likely benign. 2. Severe emphysema. Reviewed, dictated and finalized at location A.
--- NOTE | ~2022-09-08 | DEXA_ITS ---
Bone Density Report Name: LISSETT SINCLAIR Age: 61 Sex: Female Ethnicity: White Date of : 1960 Indication: postmenopausal; screening for osteoporosis; parental hip fracture; history of glucocorticoids; cancer; asthma or emphysema; Referring Provider: WILTON HAINES Study: Bone densitometry was performed. Exam Date: September 08, 2022 Accession number: [id number] Bone Density: Region BMD T-score Z-score Classification AP Spine(L1-L4) 0.901 -1.3 0.4 Osteopenia Femoral Neck (Left) 0.636 -1.9 -0.5 Osteopenia Total Hip (Left) 0.763 -1.5 -0.3 Osteopenia Femoral Neck (Right) 0.626 -2.0 -0.5 Osteopenia Total Hip (Right) 0.733 -1.7 -0.6 Osteopenia Total Hip Mean 0.748 -1.6 -0.5 Osteopenia World Health Organization criteria for BMD impression classify patients as: Normal (T-score at or above -1.0), Osteopenia (T-score between -1.0 and -2.5), or Osteoporosis (T-score at or below -2.5). 10-year Fracture Risk(1): Major Osteoporotic Fracture 25% Hip Fracture 4.1% Reported Risk Factors: [place] (), Neck BMD=0.636, BMI=19.4, parental fracture, smoking, glucocorticoids (1) FRAX(R) Version 3.08. Fracture probability calculated for an untreated patient. Fracture probability may be lower if the patient has received treatment. Previous Exams: Region Exam Age BMD T-score BMD Change BMD Change Date g/cm2 vs Baseline vs Previous AP Spine (L1-L4) 09/08/2022 61 0.901 -1.3 -0.190 (-17.4% -0.190 (-17.4% 06/12/2018 57 1.091 0.4 Total Hip(Left) 09/08/2022 61 0.763 -1.5 -0.140 (-15.5% -0.140 (-15.5% 06/12/2018 57 0.902 -0.3 Total Hip(Right) 09/08/2022 61 0.733 -1.7 -0.184 (-20.1% -0.184 (-20.1% 06/12/2018 57 0.917 -0.2 *Denotes significance at 95% confidence level, LSC for AP Spine = 0.022 g/cm2, LSC for Total Hip = 0.027 g/cm2 Clinical Information Provided by Patient: Parent has had a hip fracture Smokes Has taken Glucocorticoids Has the following medical conditions: Asthma or Emphysema, Cancer Patient maximum height was 62.5 Menopause Age: 46 Onset of menses at age 10 Number of children 1 Impression: The patient has low bone mass, based on the Right Femoral Neck T-score. The patient has an estimated ten-year risk of hip fracture of 4.1% and an estimated ten-year risk of major fracture of 25%, based on the WHO FRAX algorithm. The patient has risk factors, including: parental hip fracture, smoking, history
--- NOTE | ~2022-09-08 | MM_ITS ---
EXAMINATION: MM screening wilma BI w siddharth HISTORY: Screening mammogram TECHNIQUE: Craniocaudal and mediolateral oblique 3-D tomosynthesis images were obtained and synthetic 2-D images were generated. Bilateral rotated lateral CC views. CAD analysis was submitted and interp reted. COMPARISON: 08/24/2021, 07/16/2020, 05/30/2019 bilateral screening mammogram examinations BREAST PARENCHYMAL COMPOSITION: The breasts are heterogeneously dense, which may obscure small masses . FINDINGS: Postoperative changes from right partial mastectomy are again noted. There is no evidence o f suspicious mass, calcification, or architectural distortion to suggest malignancy in either breast. There has been no suspicious interval change. IMPRESSION: 1. Status post right partial mastectomy for breast cancer. No mammographic evidence of malignancy. 2. Recommend routine screening mammography in one year. BI-RADS Category 2: Benign finding(s). Reviewed, dictated and finalized at location A. IMPRESSION: 1. Status post right partial mastectomy for breast cancer. No mammographic evid ence of malignancy. 2. Recommend routine screening mammography in one year. BI-RADS Category 2: Benign finding(s).
[2022-09-08 09:16] LABS: Estimated Glomerular Filt Rate 56
== END 2022-09-08 08:37 | disposition home or self-care (01) ==
PROVIDERS: PCP Internal Medicine Gastroenterology; Visit Provider Internal Medicine Hematology & Oncology
DX: Z12.31 Encounter for screening mammogram for malignant neoplasm of breast (principal); Z13.820 Encounter for screening for osteoporosis; M85.80 Other specified disorders of bone density and structure, unspecified site; R91.8 Other nonspecific abnormal finding of lung field; J43.9 Emphysema, unspecified; Z12.2 Encounter for screening for malignant neoplasm of respiratory organs; Z78.0 Asymptomatic menopausal state; Z90.11 Acquired absence of right breast and nipple
CPT/HCPCS: 71260; 77063; 77067; 77080; Q9967

== ENCOUNTER 2022-09-08 10:17 | Outpatient (CLI) | payer MEDICARE, MEDICAID, SELFPAY ==
[2022-09-08 10:37] LABS: Basophils Absolute Auto 0.1 K/mm3 (0.0-0.1); Basophils Percent Auto 0.9 % (0.2-1.2); Eosinophils Absolute Auto 0.1 K/mm3 (0-0.3); Eosinophils Percent Auto 1.1 % (0-4.4); Hematocrit 41.1 % (37.0-47.0); Hemoglobin 13.5 g/dL (12.0-15.0); Immature Granulocyte Absolute 0.03 K/mm3 (0.00-0.031); Immature Granulocyte Percent A 0.3 % (0-0.5); Lymphocytes Absolute Auto 1.29 K/mm3 (0.9-3.2); Lymphocytes Percent Auto 14.4 % (18.3-44.2); Mean Corpuscular HGB Conc 32.8 g/dl (32-36); Mean Corpuscular Hemoglobin 30.8 pg (26-34); Mean Corpuscular Volume 93.6 fl (80-100); Mean Platelet Volume 9.5 fl (7.4-10.4); Monocytes Absolute Auto 0.4 K/mm3 (0.1-0.6); Monocytes Percent Auto 4.1 % (2.6-8.5); Neutrophils Absolute Auto 7.1 K/mm3 (1.3-6.7); Neutrophils Percent Auto 79.2 % (45.5-73.1); Platelet Count Result 300 k/mm3 (150-375); Red Blood Count 4.39 M/mm3 (4.2-5.4); Red Cell Distribution Width 13.1 % (11.5-14.5)
[2022-09-08 12:32] LABS: Alanine Aminotransferase 27 U/L (6-35); Albumin Level 4.6 g/dL (3.5-5.1); Alkaline Phosphatase 65 U/L (38-126); Anion Gap 2 mmol/L (8-16); Aspartate Amino Transferase 39 U/L (14-36); Bilirubin,Total 0.4 mg/dL (0.2-1.3); Blood Urea Nitrogen 17 mg/dL (7-17); Calcium 9.3 mg/dL (8.4-10.2); Carbon Dioxide 37 mmol/L (22-30); Chloride 98 mmol/L (98-107); Estimated Glomerular Filt Rate > 60; Glucose 116 mg/dL (65-110); Potassium 4.5 mmol/L (3.4-5.0); Sodium 137 mmol/L (137-145)
[2022-09-13 14:21] LABS: CA 15-3 18 U/mL (<32)
== END 2022-09-08 10:18 | disposition home or self-care (01) ==
LOC: ANHLAB 10:18
PROVIDERS: PCP Internal Medicine Gastroenterology; Visit Provider Internal Medicine Hematology & Oncology
DX: C50.511 Malignant neoplasm of lower-outer quadrant of right female breast (principal); Z17.0 Estrogen receptor positive status [ER+]
CPT/HCPCS: 36415; 71260; 77063; 77067; 77080; 80053; 85025; 86300; Q9967

== ENCOUNTER 2023-03-08 08:38 | Outpatient (CLI) | payer MEDICARE, MEDICAID, SELFPAY ==
[2023-03-08 08:56] LABS: Basophils Absolute Auto 0.1 K/mm3 (0.0-0.1); Basophils Percent Auto 0.9 % (0.2-1.2); Eosinophils Absolute Auto 0.2 K/mm3 (0-0.3); Eosinophils Percent Auto 2.9 % (0-4.4); Hematocrit 37.8 % (37.0-47.0); Hemoglobin 11.9 g/dL (12.0-15.0); Immature Granulocyte Absolute 0.03 K/mm3 (0.00-0.031); Immature Granulocyte Percent A 0.4 % (0-0.5); Lymphocytes Absolute Auto 1.74 K/mm3 (0.9-3.2); Lymphocytes Percent Auto 21.9 % (18.3-44.2); Mean Corpuscular HGB Conc 31.5 g/dl (32-36); Mean Corpuscular Hemoglobin 29.2 pg (26-34); Mean Corpuscular Volume 92.9 fl (80-100); Mean Platelet Volume 9.9 fl (7.4-10.4); Monocytes Absolute Auto 0.8 K/mm3 (0.1-0.6); Monocytes Percent Auto 10.4 % (2.6-8.5); Neutrophils Absolute Auto 5.1 K/mm3 (1.3-6.7); Neutrophils Percent Auto 63.5 % (45.5-73.1); Platelet Count Result 231 k/mm3 (150-375); Red Blood Count 4.07 M/mm3 (4.2-5.4); Red Cell Distribution Width 13.6 % (11.5-14.5)
[2023-03-08 09:42] LABS: Alanine Aminotransferase 14 U/L (6-35); Albumin Level 4.2 g/dL (3.5-5.1); Alkaline Phosphatase 74 U/L (38-126); Anion Gap 6 mmol/L (8-16); Aspartate Amino Transferase 27 U/L (14-36); Bilirubin,Total 0.5 mg/dL (0.2-1.3); Blood Urea Nitrogen 17 mg/dL (7-17); Carbon Dioxide 33 mmol/L (22-30); Chloride 100 mmol/L (98-107); Estimated Glomerular Filt Rate > 60; Glucose 96 mg/dL (65-110); Potassium 3.8 mmol/L (3.4-5.0); Sodium 139 mmol/L (137-145)
[2023-03-11 10:38] LABS: CA 15-3 20 U/mL (<32)
== END 2023-03-08 08:39 | disposition home or self-care (01) ==
LOC: ANHLAB 08:42
PROVIDERS: PCP Internal Medicine Gastroenterology; Visit Provider Internal Medicine Hematology & Oncology
DX: C50.511 Malignant neoplasm of lower-outer quadrant of right female breast (principal)
CPT/HCPCS: 36415; 80053; 85025; 86300

== ENCOUNTER 2023-03-15 09:42 | Outpatient (CLI) | payer MEDICARE, MEDICAID, SELFPAY ==
[2023-03-15 12:20] LABS: Iron 88 ug/dL (37-170)
[2023-03-15 12:29] LABS: Percent Iron Saturation 32 % (20-50)
== END 2023-03-15 09:43 | disposition home or self-care (01) ==
LOC: ANHLAB 09:44
PROVIDERS: PCP Internal Medicine Gastroenterology; Visit Provider Internal Medicine Hematology & Oncology
DX: C50.511 Malignant neoplasm of lower-outer quadrant of right female breast (principal); D64.9 Anemia, unspecified
CPT/HCPCS: 36415; 82607; 82728; 83540; 83550

== ENCOUNTER 2023-09-11 09:53 | Outpatient (CLI) | payer MEDICARE, SELFPAY ==
--- NOTE | ~2023-09-11 | MM_ITS ---
EXAMINATION: MM screening wilma BI w siddharth HISTORY: Screening TECHNIQUE: Craniocaudal and mediolateral oblique 3-D tomosynthesis images were obtained and synthetic 2-D images were generated. CAD analysis was submitted and interpreted. COMPARISON: Comparison to multiple prior studies sequentially, with oldest reviewed study dated 05/14. BREAST PARENCHYMAL COMPOSITION: Dense: The breasts are heterogeneously dense, which may obscure small masses FINDINGS: There is no evidence of suspicious mass, calcification, or architectural distortion to sugg est malignancy in either breast. There has been no suspicious interval change. IMPRESSION: 1. No mammographic evidence of malignancy. 2. Recommend routine screening mammography in one year. BI-RADS Category 1: Negative Reviewed, dictated and finalized at location B.
--- NOTE | ~2023-09-11 | CT_ITS ---
EXAMINATION: CT lung screening DATE: 09/11/2023 10:55 INDICATION: SCREENING FOR LUNG CANCER TECHNIQUE: Computed tomography (CT) of the chest was performed without intravenous contrast. Addition al 3D reconstructions utilizing coronal maximum intensity projection (MIP) were performed. Automated exposure control and iterative reconstruction technique were employed. The dose-length product was 63 .13 mGy-cm. COMPARISON: 09/08/2022 and 12/02/2020 FINDINGS: Severe emphysema. Again seen are numerous scattered bilateral calcified pulmonary nodules consistent with old granulomatous disease. No interval change since 2020 in a left upper lobe nodule with eccent rin aspiration measuring 2.1 x 0.9 cm on the coronal images. There are numerous new <5 mm pulmonary n odules with some associated irregular septal line thickening clustered in regions of the bilateral lo wer lobes and right middle lobe which likely infectious/inflammatory in etiology. There are some asso ciated new mucous plugging in the right lower lobar bronchi. There is also a new elongated band of co nsolidation or atelectasis extending craniocaudally in the lingula along the anterior margin of the m ajor fissure. Heart size is normal. No pericardial effusion. Sclerotic coronary artery calcification. Thoracic aorta is normal in caliber. No pathologically enlarged thoracic lymphadenopathy. Visualized upper abdomen is unremarkable. Mild thoracic spondylosis. IMPRESSION: 1. Lung-RADS category 2: Benign appearance or behavior. Continue annual screening with noncontrast lo w-dose chest CT in 12 months. Line 2. New mucous plugging in several of the right lower lobar bronchi and regions of new small centrilob ular nodules and irregular septal line thickening in bilateral lower lobes and right middle lobe whic h are most consistent with pneumonia. Reviewed, dictated and finalized at location A. IMPRESSION: 1. Lung-RADS category 2: Benign appearance or behavior. Continue annual screeni ng with noncontrast low-dose chest CT in 12 months. Line 2. New mucous plugging in several of the right lower lobar bronchi and regions of new small centrilobular nodules and irregular septal line thickening in bila teral lower lobes and right middle lobe which are most consistent with pneumoni a.
== END 2023-09-11 09:54 | disposition home or self-care (01) ==
PROVIDERS: PCP Internal Medicine Gastroenterology; Visit Provider Internal Medicine Hematology & Oncology
DX: Z12.31 Encounter for screening mammogram for malignant neoplasm of breast (principal); Z12.2 Encounter for screening for malignant neoplasm of respiratory organs; J43.9 Emphysema, unspecified
CPT/HCPCS: 71271; 77063; 77067

== ENCOUNTER 2023-09-14 09:22 | Outpatient (CLI) | payer MEDICARE, SELFPAY ==
[2023-09-14 09:49] LABS: Basophils Absolute Auto 0.1 K/mm3 (0.0-0.1); Basophils Percent Auto 0.7 % (0.2-1.2); Eosinophils Absolute Auto 0.2 K/mm3 (0-0.3); Eosinophils Percent Auto 2.1 % (0-4.4); Hematocrit 38.4 % (37.0-47.0); Immature Granulocyte Absolute 0.02 K/mm3 (0.00-0.031); Immature Granulocyte Percent A 0.2 % (0-0.5); Lymphocytes Absolute Auto 1.66 K/mm3 (0.9-3.2); Lymphocytes Percent Auto 19.2 % (18.3-44.2); Mean Corpuscular HGB Conc 31.3 g/dl (32-36); Mean Corpuscular Hemoglobin 28.6 pg (26-34); Mean Corpuscular Volume 91.6 fl (80-100); Mean Platelet Volume 8.7 fl (7.4-10.4); Monocytes Absolute Auto 0.8 K/mm3 (0.1-0.6); Monocytes Percent Auto 9.6 % (2.6-8.5); Neutrophils Absolute Auto 5.9 K/mm3 (1.3-6.7); Neutrophils Percent Auto 68.2 % (45.5-73.1); Platelet Count Result 359 k/mm3 (150-375); Red Blood Count 4.19 M/mm3 (4.2-5.4); Red Cell Distribution Width 14.1 % (11.5-14.5); White Blood Count 8.7 K/mm3 (4.5-10.0)
[2023-09-14 11:16] LABS: Iron 39 ug/dL (37-170)
[2023-09-14 11:18] LABS: Alanine Aminotransferase 13 U/L (6-35); Albumin Level 4.4 g/dL (3.5-5.1); Alkaline Phosphatase 78 U/L (38-126); Anion Gap 5 mmol/L (4-12); Aspartate Amino Transferase 23 U/L (14-36); Bilirubin,Total 0.5 mg/dL (0.2-1.3); Blood Urea Nitrogen 14 mg/dL (7-17); Calcium 9.1 mg/dL (8.4-10.2); Carbon Dioxide 35 mmol/L (22-30); Chloride 101 mmol/L (98-107); Estimated Glomerular Filt Rate > 60; Glucose 98 mg/dL (65-110); Potassium 3.9 mmol/L (3.4-5.0); Sodium 141 mmol/L (137-145)
[2023-09-14 11:27] LABS: Percent Iron Saturation 15 % (20-50)
[2023-09-15 12:03] LABS: CA 15-3 20 U/mL (<32)
== END 2023-09-14 09:23 | disposition home or self-care (01) ==
LOC: ANHLAB 09:31
PROVIDERS: PCP Internal Medicine Gastroenterology; Visit Provider Internal Medicine Hematology & Oncology
DX: D64.9 Anemia, unspecified (principal); C50.511 Malignant neoplasm of lower-outer quadrant of right female breast
CPT/HCPCS: 36415; 80053; 82607; 82728; 83540; 83550; 85025; 86300

== ENCOUNTER 2024-05-24 08:15 | Outpatient (CLI) | payer MEDICARE, SELFPAY ==
[2024-05-24 08:28] LABS: Basophils Absolute Auto 0.1 K/mm3 (0.0-0.1); Eosinophils Absolute Auto 0.2 K/mm3 (0-0.3); Eosinophils Percent Auto 2.3 % (0-4.4); Hematocrit 40.4 % (37.0-47.0); Hemoglobin 12.7 g/dL (12.0-15.0); Immature Granulocyte Absolute 0.03 K/mm3 (0.00-0.031); Immature Granulocyte Percent A 0.4 % (0-0.5); Lymphocytes Absolute Auto 1.56 K/mm3 (0.9-3.2); Mean Corpuscular HGB Conc 31.4 g/dl (32-36); Mean Corpuscular Volume 95.3 fl (80-100); Mean Platelet Volume 8.7 fl (7.4-10.4); Monocytes Absolute Auto 0.7 K/mm3 (0.1-0.6); Monocytes Percent Auto 9.5 % (2.6-8.5); Neutrophils Absolute Auto 5.2 K/mm3 (1.3-6.7); Neutrophils Percent Auto 66.8 % (45.5-73.1); Platelet Count Result 303 k/mm3 (150-375); Red Blood Count 4.24 M/mm3 (4.2-5.4); Red Cell Distribution Width 13.9 % (11.5-14.5); White Blood Count 7.8 K/mm3 (4.5-10.0)
[2024-05-24 11:39] LABS: Alanine Aminotransferase 20 U/L (6-35); Albumin Level 4.2 g/dL (3.5-5.1); Alkaline Phosphatase 78 U/L (38-126); Anion Gap 7 mmol/L (4-12); Aspartate Amino Transferase 26 U/L (14-36); Bilirubin,Total 0.6 mg/dL (0.2-1.3); Blood Urea Nitrogen 18 mg/dL (7-17); Calcium 9.3 mg/dL (8.4-10.2); Carbon Dioxide 33 mmol/L (22-30); Chloride 101 mmol/L (98-107); Estimated Glomerular Filt Rate > 60; Glucose 97 mg/dL (65-110); Potassium 4.4 mmol/L (3.4-5.0); Sodium 141 mmol/L (137-145)
[2024-05-25 07:48] LABS: CA 15-3 23 U/mL (<32)
== END 2024-05-24 08:16 | disposition home or self-care (01) ==
LOC: ANHLAB 08:16
PROVIDERS: PCP Internal Medicine Hematology & Oncology; Visit Provider Internal Medicine Hematology & Oncology
DX: C50.511 Malignant neoplasm of lower-outer quadrant of right female breast (principal)
CPT/HCPCS: 36415; 80053; 85025; 86300

== ENCOUNTER 2024-11-08 08:53 | Outpatient (CLI) | payer MEDICARE, MEDICAID, SELFPAY ==
--- NOTE | ~2024-11-08 | MM_ITS ---
EXAMINATION: MM screening wilma BI w siddharth HISTORY: Screening TECHNIQUE: Craniocaudal and mediolateral oblique 3-D tomosynthesis images were obtained and synthetic 2-D images were generated. CAD analysis was submitted and interpreted. COMPARISON: Comparison to multiple prior studies sequentially, with oldest reviewed study dated 05/14. BREAST PARENCHYMAL COMPOSITION: Dense: The breasts are extremely dense, which lowers the sensitivity of mammography. FINDINGS: There is no evidence of suspicious mass, calcification, or architectural distortion to sugg est malignancy in either breast. There has been no suspicious interval change. IMPRESSION: 1. No mammographic evidence of malignancy. 2. Recommend routine screening mammography in one year. BI-RADS Category 1: Negative Reviewed, dictated and finalized at location A.
--- NOTE | ~2024-11-08 | CT_ITS ---
CT Scan of the Chest without Contrast: Clinical Indication: Lung cancer screening Technique: Contiguous sections were acquired throughout the chest without intravenous contrast. Dose reduction technique was used on this scan by utilizing automated exposure control and iterative recon struction technique. The dose-length product (DLP) was 58.13 mGy-cm. COMPARISON: 09/11/2023 Findings: There is no evidence of any significant mediastinal, hilar or axillary lymphadenopathy. The mediastin al soft tissues appear normal. There is no evidence of pleural or pericardial effusion. There is severe emphysema. Multiple calcified granulomas are present. Stable 11 mm spiculated nodule in the left upper lobe (axial image 43). Numerous subcentimeter nodules in the right middle lobe and bilateral lower lobes are again present, compatible with acute on chronic small airways infectious pr ocess. Images through the upper abdomen reveal no abnormalities. Impression: Stable 11 mm spiculated left upper lobe nodule. Innumerable bibasilar subcentimeter nodules, compatible with acute on chronic small airways infectiou s process, similar to prior exam. Severe emphysema. Reviewed, dictated and finalized at location . Impression: Stable 11 mm spiculated left upper lobe nodule. Innumerable bibasilar subcentimeter nodules, compatible with acute on chronic s mall airways infectious process, similar to prior exam. Severe emphysema.
== END 2024-11-08 08:54 | disposition home or self-care (01) ==
PROVIDERS: PCP Internal Medicine Infectious Disease; Visit Provider Internal Medicine Hematology & Oncology
DX: Z12.2 Encounter for screening for malignant neoplasm of respiratory organs (principal); Z87.898 Personal history of other specified conditions; Z12.31 Encounter for screening mammogram for malignant neoplasm of breast
CPT/HCPCS: 71250; 77063; 77067

== ENCOUNTER 2024-12-06 08:20 | Outpatient (CLI) | payer MEDICARE, MEDICAID, SELFPAY ==
--- OUTSIDE RECORDS SUMMARY | 2024-12-06 08:26 | XMS_ITS | Encounter Summary ---
Author Organization [facility] Address [address] [place] [address] Care Team Providers Care Estimator And Drafter Supervisor Name Role Phone Yazmin Hargrove MD Primary Care Provider Encounter Details Date Type Department Care Team (Late st Contact Info) Description 03/21/2018 Pharmacist Telephone/Documentatio n [facility] [address] [place] [address] Dixie Rubi MD [address] [place] [address] 2L DIV OF PULMONARY/[place] [address] Social History Tobacco Use Types Packs/Day Years Used Date Smoking Tobacco: Every Day Cigarettes Last attempted to quit: 09/03/2014 Smokeless Tobacco: Never Alcohol Use Standard Drinks/Week Comments No 0 (1 standard drink = 0.6 oz pur e alcohol) Comments No Sex and Gender Information Value Date Recorded Sex Assigned at Not on file Legal Sex Female 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 Gender Identity Not on file Sexual Orientation Not on file documented as of this encounter Plan of Treatment Upcoming Encounters Date Type Department Care Team (Late Contact Info) Description 12/20/2024 9:30 AM CDT Office Visit [facility] - Pulmonology [address] [place] [address], [place] [address] Dixie Rubi MD [address] [place] [address] 2L DIV OF PULMONARY/[place] [address] documented as of this encounter Visit Diagnoses Not on filedocumented in this encounter Care Teams Estimator And Drafter Supervisor Relationship Specialty Start Date End Date Yazmin Hargrove MD [address] [place] [address] PCP - General 10/02/14 documented as of this encounter
--- OUTSIDE RECORDS SUMMARY | 2024-12-06 08:26 | XMS_ITS | Encounter Summary ---
Author Organization [facility] Address [address] [place] [address] Care Team Providers Care Hydroponics Grower Name Role Phone Yazmin Hargrove MD Primary Care Provider Reason for Visit * Reason Onset Date Comments MEDICATION REFILL 10/02/2024 Encounter Details Date Type Department Care Team ([facility] Contact Info) Description 10/02/2024 Refill [facility] - Pulmonology [address] [place] [address], [place] [phone] Dixie Rubi MD [address] [place] [address] OF PULMONARY/[place] [address] MEDICATION REFILL Social History Tobacco Use Types Packs/Day Years Used Date Smoking Tobacco: Every Day Cigarettes 1 40 Started: 09/03/1974; Last attempted to quit: 09/03/2014 Smokeless Tobacco: Never Comments:curently only smoki ng 0.50 pack/ started smoking age 16 Alcohol Use Standard Drinks/Week Comments No 0 (1 standard drink = 0.6 oz pur e alcohol) Comments No Sex and Gender Information Value Date Recorded Sex Assigned at Not on file Legal Sex Female 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 Gender Identity Not on file Sexual Orientation Not on file documented as of this encounter Plan of Treatment Upcoming Encounters Date Type Department Care Team ([facility] Contact Info) Description 12/20/2024 9:30 AM CDT Office Visit [facility] - Pulmonology [address] [place] [phone] Dixie Rubi MD [address] OF PULMONARY/[place] [address] documented as of this encounter Visit Diagnoses Diagnosis Anxiety Anxiety state, unspecified documented in this encounter Care Teams Hydroponics Grower Relationship Specialty Start Date End Date Yazmin Hargrove MD [address] [place] [address] PCP - General 10/02/14 documented as of this encounter
--- OUTSIDE RECORDS SUMMARY | 2024-12-06 08:26 | XMS_ITS | Encounter Summary ---
Author Organization [facility] Address [address] [place] [address] Care Team Providers Care Production Supervisor Trainee Name Role Phone Yazmin Hargrove MD Primary Care Provider [phone] Encounter Details Date Type Department Care Team (Late st Contact Info) Description 08/26/2022 Telephone [facility] - Pulmonology [address] [place] [address], [place] [phone] Dixie Rubi MD [address] [place] [address] DIV OF PULMONARY/[place] [address] Social History Tobacco Use Types Packs/Day Years [...] on file Legal Sex Female 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 Dixie Rubi Reason for call: Ms. Jes Reilly called re: the script for clonazePAM (KlonoPIN) 1 MG tablet. The other script is at the pharmacy, but they have no record of the clonazaPam. Please advise. Pharmacy of record: [facility] [address] [facility] [address] [phone] Patient Call Back number: [phone] documented in this encounter Plan of Treatment Upcoming Encounters Date Type Department Care Team (Late st Contact Info) Description 12/20/2024 9:30 AM CDT Office Visit [facility] - Pulmonology [address] [place] [address], [place] [phone] Dixie Rubi MD [address] [place] [address] 2L DIV OF PULMONARY/[place] [address] documented as of this encounter Visit Diagnoses Not on filedocumented in this encounter Care Teams Production Supervisor Trainee Relationship Specialty Start Date End Date Yazmin Hargrove MD [address] [place] [address] PCP - General 10/02/14 documented as of this encounter
--- OUTSIDE RECORDS SUMMARY | 2024-12-06 08:26 | XMS_ITS | Clinical Summary ---
Author Organization [facility] Address [address] [place] [address] Care Team Providers Care Freight Associate Name Role Phone Yazmin Hargrove MD Primary Care Provider Allergies No known active allergies Medications sertraline (ZOLOFT) 50 mg tablet Take 50 mg by mouth daily. Active lisinopril-hydroC HLOROthiazide (ZESTORETIC) 20-12.5 mg tablet 7 Active albuterol HFA 90 mcg inhaler Take 2 Puffs by inhalation. 7 Active albuterol (PROVENTIL,VENTOL IN) 2.5 mg /3 mL (0.083 %) Solution for Nebulization 2.5 mg. 7 Active predniSONE (DELTASONE) 5 mg tablet prednisone 5 mg tablet Active clonazePAM (KlonoPIN) 1 mg tablet TAKE 1 TABLET BY MOUTH THREE TIMES DAILY 1 Active acetylcysteine (MUCOMYST) 20 % (200 mg/mL) solution INHALE 600MG (3ML) PER NEBULIZER TWICE DAILY 1 Active flu vaccine quadrivalent recomb 2020-21, 18 yr+,,PF, (Flublok Quad , PF,) 180 mcg (45 mcg x 4)/0.5 mL Syringe syringe Flublok Quad (PF) 180 mcg (45 mcg x 4)/0.5 mL IM syringe Active levothyroxine 100 mcg tablet Take 100 mcg by mouth daily in the morning. Active glycopyrrolate-fo rmoteroL (Bevespi Aerosphere) 9-4.8 mcg HFA Aerosol Inhaler Take 2 Puffs by inhalation 2 times daily. 2 Active pantoprazole (PROTONIX) 40 mg Tablet, Delayed Release (E.C.) Take 40 mg by mouth daily. 2 Active azithromycin (ZITHROMAX) 250 mg tablet Take 250 mg by mouth daily. 2 Active anastrozole (ARIMIDEX) 1 mg tabletIndications :Malignant neoplasm of lower-outer quadrant of right female breast, unspecified estrogen receptor status (CMS/HCC),Maligna nt neoplasm of lower-outer quadrant of right breast of female, estrogen receptor positive (CMS/HCC),Ganglio n cyst,Lung nodule Take 1 tablet by mouth once daily 90 Tablet 5 3 Active megestroL (MEGACE) 400 mg/10 mL (40 mg/mL) suspension Take 5 mL (200 mg) by mouth daily. 240 mL 4 Active Active Problems Problem Noted Date Diagnosed Date Screening for breast cancer 11/17/2017 Aromatase inhibitor use 11/17/2017 Malignant neoplasm of lower- outer quadrant of right breast of female, estrogen receptor positive 08/24/2016 Tobacco use 08/24/2016 Resolved Problems Problem Noted Date Diagnosed Date Resolved Date Estrogen receptor positive 11/17/2017 0 05/23/2018 Diffuse pain in right upper extremity 11/17/2017 05/23/2018 Encounters Date Type Department Care Team Description 11/27/2024 External Device Data [facility] ABSTRACTION Provider, Abstract 11/11/2024 Orders Only [facility] - [place] [facility] [place] [address] [address] Terry Villagomez MD 11/05/2024 External Device Data [facility] ABSTRACTION Provider, Abstract 10/09/2024 External Device Data [facility] ABSTRACTION Provider, Abstract 09/11/2024 External Device Data [facility] ABSTRACTION Provider, Abstract from Last 3 Months Family History Medical History Relation Name Comments Respiratory Disease Father Heart Disease Mother Respiratory Disease Sister 1 Healthy Sister 2 Healthy Sister 3 Relation Name Status Comments Father Mother Alive Sister 1 Alive Sister 2 Alive Sister 3 Alive Social History Tobacco Use Types Packs/Day Years Used Date Smoking Tobacco: Every Day Cigarettes 1 35 E-Cigarette/Mist Inh alation Device Smokeless Tobacco: Never Tobacco Cessation:Ready to Q uit: Not Asked; Counseling Given: Not Answered Alcohol Use Standard Drinks/Week Comments No 0 (1 standard drink = 0.6 oz pur e alcohol) occasional Comments No Sex and Gender Information Value Date Recorded Sex Assigned at Not on file Legal Sex Female 4:01 PM CDT Gender Identity Not on file Sexual Orientation Not on file Last Filed Vital Signs Vital Sign Reading Time Taken Comments Blood Pressure 108/59 05/31/2024 9:09 AM COOKER MECHANIC Pulse 100 05/31/2024 9:09 AM COOKER MECHANIC Temperature 36.3 C (97.3 F) 05/31/2024 9:09 AM COOKER MECHANIC Respiratory Rate 15 05/31/2024 9:09 AM COOKER MECHANIC Oxygen Saturation 92% 05/31/2024 9:09 AM COOKER MECHANIC Inhaled Oxygen Concentration - - Weight 46.7 kg (103 lb) 05/31/2024 9:09 AM COOKER MECHANIC Height 157.5 cm (5' 2) 10/01/2021 9:33 AM CDT Body Mass Index 18.84 10/01/2021 9:33 AM CDT Plan of Treatment Upcoming Encounters Date Type Department Care Team (Late st Contact Info) Description 12/13/2024 10:00 AM CDT [facility] Visit [facility] - [place] [address] [facility] [[email or web address] [address] [place] [address] Terry Villagomez MD [address] [place] [address] Health Maintenance Due Date Last Done Comments DTAP/TDAP/TD VACCINES (1 - Tdap) 1977 PNEUMOCOCCAL VACCINE 50+ YEA RS (1 of 2 - PCV) 1977 COLORECTAL SCREENING 09/30/2003 Colorectal Cancer Screening 09/30/2003 FIT-DNA Q 3 years 09/30/2003 FIT/FOBT Q 1 year 09/30/2003 Flex Sig/CT Colonography Q 5 years 09/30/2003 Lung Cancer Screening 2008 ZOSTER VACCINE (1 of 2) 2008 RSV VACCINE (60+ or ) (1 - Risk 60-74 years 1-dose series) 2018 OSTEOPOROSIS SCREENING 09/30/2023 06/12/2018 Medicare Advantage (DC) Preventative Visit/Annual Wellness Visit 03/27/2024 INFLUENZA VACCINE (#1) 2024 2, 12/18/2020, 01/23/2020, Additional history exists BREAST CANCER SCREENING 11/08/2025 11/09/19 25, 09/11/2023, 09/08/2022, Additional history exists Procedures Procedure Name Priority Date/Time Associated Diagnosis Comments MAMMO SCREENING BILAT Routine 11/08/2024 10:[address] CHEST W CONTRAST Routine 11/08/2024 9:44 AM CDT XR DEXA BONE DENSITY AXIAL 1 OR MORE SITES Routine 06/12/2018 Malignant neoplasm of lower-inner quadrant of right breast of female, estrogen receptor positive (CMS/HCC) from Last 3 Months or Most Recently Relevant to Health Maintenance Results * MAMMO SCREENING BILAT (11/08/2024 10:57 AM CDT) Anatomical Region Laterality Modality Breast Bilateral Mammography us Terry Villagomez MD MAMMO ORDERABLES Final Result * CT CHEST W CONTRAST (11/08/2024 9:44 AM CDT) Anatomical Region Laterality Modality Chest Computed Tomogra phy us Terry Villagomez MD CT ORDERABLES Final Result * XR DEXA BONE DENSITY AXIAL 1 OR MORE SITES (06/12/2018) Anatomical Region Laterality Modality Other us Terry Villagomez MD DIAGNOSTIC IMAGING ORDERABLES F inal Result from Last 3 Months or Most Recently Relevant to Health Maintenance Insurance MEDICAID [place] [facility] Address: [address] [place] [address] MEDICAID [place] [facility] Address: [address] [place] [address] Care Teams Freight Associate Relationship Specialty Start Date End Date Yazmin Hargrove MD [address] [place] [address] PCP - General Gastroenterology 08/24/16
--- OUTSIDE RECORDS SUMMARY | 2024-12-06 08:26 | XMS_ITS | Clinical Summary ---
Author Organization [facility] Address [address] [place] [address] Care Team Providers Care Lump Roller Name Role Phone Yazmin Hargrove MD Primary Care Provider [phone] Source Comments [facility],non-owned Affiliates and Associated Physician Practices is amultiple site organization consisting of ambulatory clinics and hospital sitesin [place], [place], [place] and [place]. This disclosure is being madepursuant to the Care Everywhere program and may not contain all information available regarding this patient. Last updated 17.[facility] Allergies No known active allergies Medications * Be aware that medications may not be up to date on this document. Alwaysverify current medications with the patient. Levothyroxine Sodium (SYNTHROID PO) Take 50 mg by mouth once daily Active lisinopril-hydro CHLOROthiazide (PRINZIDE; ZESTORETIC) 20-12.5 MG tablet 1 (one) tablet by Mouth/Throat route once daily 7 Active sertraline (ZOLOFT) 50 MG tablet Take 1 (one) tablet by mouth at bedtime Active mometasone-formo terol (DULERA) 200-5 MCG/ACT inhalerIndicatio ns:Lung nodule Inhale 2 puffs by mouth 2 times daily 1 Inhaler 11 9 Active Additional Information Patient not taking.Reported on 08/26/2022 anastrozole (ARIMIDEX) 1 MG tablet Take 1 (one) tablet by mouth once daily Active budesonide-formo terol (SYMBICORT) 160-4.5 MCG/ACT inhaler Inhale 2 puffs by mouth 2 times daily 1 Inhaler 9 Active fluticasone-salm eterol (AIRDUO RESPICLICK 232/14) 232-14 MCG/ACT inhalerIndicatio ns:Chronic obstructive pulmonary disease, unspecified COPD type (HCC) Inhale 1 puff by mouth 2 times daily 1 Inhaler 11 9 Active raNITIdine (ZANTAC) 150 MG tablet Take 100 mg by mouth 2 times daily Active umeclidinium (INCRUSE ELLIPTA) 62.5 MCG/INH inhaler Inhale 1 puff by mouth once daily 1 Each 5 9 Active Additional Information Patient not taking.Reported on 02/25/2022 umeclidinium (INCRUSE ELLIPTA) 62.5 MCG/INH inhaler Inhale 1 puff by mouth once daily 1 Each 11 9 Active Additional Information Patient not taking.Reported on 02/25/2022 acetylcysteine 600 MG capsuleIndicatio ns:Chronic obstructive pulmonary disease with acute exacerbation (HCC) Take 1 capsule by mouth 2 times daily 60 capsule 1 9 Active Additional Information Patient not taking.Reported on 10/06/2023 levoFLOXacin (LEVAQUIN) 750 MG tabletIndication s:Chronic obstructive pulmonary disease with acute exacerbation (HCC) Take 1 tablet by mouth once daily 7 tablet 0 Active sertraline (ZOLOFT) 100 MG tablet 1 Active EUTHYROX 100 MCG tablet Take 1 (one) tablet by mouth once daily 1 Active azithromycin (ZITHROMAX) 250 MG tabletIndication s:Sarcoidosis,CO PD exacerbation (HCC) Take 2 tabs today, then 1 tab daily for next 4 days 6 tablet 1 Active Additional Information Patient not taking.Reported on 08/26/2022 amoxicillin-clav ulanate (AUGMENTIN) 500-125 MG tabletIndication s:Chronic obstructive pulmonary disease with acute exacerbation (HCC),COPD exacerbation (HCC) Take 1 (one) tablet by mouth 2 times daily with morning and evening meal 20 tablet 2 Active Additional Information Patient not taking.Reported on 08/26/2022 predniSONE (DELTASONE) 20 MG tabletIndication s:Chronic obstructive pulmonary disease with acute exacerbation (HCC),COPD exacerbation (HCC) Take 1 (one) tablet by mouth once daily 5 tablet 2 Active Additional Information Patient not taking.Reported on 10/06/2023 predniSONE (DELTASONE) 20 MG tabletIndication s:Chronic obstructive pulmonary disease with acute exacerbation (HCC) Take 1 (one) tablet by mouth once daily 5 tablet 2 Active Additional Information Patient not taking.Reported on 10/06/2023 amoxicillin-clav ulanate (AUGMENTIN) 875-125 MG tabletIndication s:Chronic obstructive pulmonary disease with acute exacerbation (HCC) Take 1 (one) tablet by mouth 2 times daily with morning and evening meal 20 tablet 2 Active Additional Information Patient not taking.Reported on 08/26/2022 Nirmatrelvir&Rit onavir 300/100 20 x 150 MG & 10 x 100MG Oral Tablet Therapy Pack (Paxlovid) Take two 150mg tablets (300mg) of nirmatrelvir and one tablet (100mg) of ritonavir together as a single dose by mouth twice daily for 5 days. Do not crush, chew, or cut in half. 30 tablet 2 Active Additional Information Patient not taking.Reported on 02/25/2022 predniSONE (Deltasone) 20 MG tabletIndication s:COPD exacerbation (HCC) Take 2 (two) tablets by mouth once daily 10 tablet 2 Active Additional Information Patient not taking.Reported on 10/06/2023 azithromycin (Zithromax) 250 MG tabletIndication s:COPD exacerbation (HCC) Take 2 tabs today, then 1 tab daily for next 4 days 6 tablet 2 Active azithromycin (Zithromax) 250 MG tabletIndication s:COPD exacerbation (HCC) Take 2 tabs today, then 1 tab daily for next 4 days 6 tablet 3 Active Additional Information Patient not taking.Reported on 08/26/2022 clonazePAM (KlonoPIN) 1 MG tabletIndication s:Anxiety Take by mouth 3 times daily 42 tablet 3 Active buPROPion (Wellbutrin) 100 MG tabletIndication s:Anxiety,Tobacc o abuse Take 1 (one) tablet by mouth 2 times daily 60 tablet 4 3 Active Nebulizers (DME misc supply)Indicatio ns:Sarcoidosis,C hronic respiratory failure with hypoxia (HCC) Use as directed 1 Each 3 Active NebulizerIndicat ions:Chronic obstructive pulmonary disease with acute exacerbation (HCC) Use as directed Nebulizer 1 Each 3 Active Varenicline Tartrate, Starter, (Chantix Starting Month ) 0.5 MG X 11 & 1 MG X 42 tabletsIndicatio ns:Tobacco abuse Take by mouth as directed Take 0.5 mg daily days 1-3, twice daily days 4-7, then 1 mg twice daily 53 tablet 4 Active albuterol (Proventil;Lisseth bailey) (2.5 MG/3ML) 0.083% nebulizer solutionIndicati ons:Chronic obstructive pulmonary disease, unspecified COPD type (HCC),Lung nodule USE 1 VIAL IN NEBULIZER EVERY 6 HOURS NEEDED FOR WHEEZING 200 mL 11 4 Active varenicline (Chantix) 0.5 MG tabletIndication s:Smoking Cessation Therapy Take 1 (one) tablet by mouth 2 times daily Reasons: Treatment to Stop Smoking 60 tablet 5 4 Active azithromycin (Zithromax) 250 MG tabletIndication s:Chronic obstructive pulmonary disease, unspecified COPD type (HCC) Take 1 tablet by mouth once daily 90 tablet 5 Active albuterol HFA (Proventil; Ventolin; Proair) 108 (90 Base) MCG/ACT inhalerIndicatio ns:Lung nodule INHALE 2 PUFFS BY MOUTH EVERY 6 HOURS NEEDED FOR WHEEZING 18 g 5 Active omeprazole (PriLOSEC) 40 MG capsule Take 1 (one) capsule by mouth 2 times daily Active fluticasone-umec lidin-vilant (Trelegy Ellipta) 200-62.5-25 MCG/ACT inhalerIndicatio ns:Chronic obstructive pulmonary disease with acute exacerbation (HCC) INHALE 1 PUFF ONCE DAILY 60 Each 11 5 Active azithromycin (Zithromax) 250 MG tabletIndication s:Chronic obstructive pulmonary disease, unspecified COPD type (HCC) Take 1 tablet by mouth once daily 30 tablet 11 5 Active albuterol (Proventil;Lisseth bailey) (2.5 MG/3ML) 0.083% nebulizer solutionIndicati ons:Chronic obstructive pulmonary disease, unspecified COPD type (HCC) Inhale 2.5 (two and one-half) mg by mouth every 4 hours as needed for Shortness of Breath 300 mL 5 Active albuterol HFA (Proventil HFA) 108 (90 Base) MCG/ACT inhalerIndicatio ns:Lung nodule Inhale 2 (two) puffs by mouth every 6 hours as needed (Wheezing) 8.5 g 5 Active acetylcysteine (Mucomyst) 20 % solutionIndicati ons:Chronic obstructive pulmonary disease, unspecified COPD type (HCC) INHALE 3 ML IN NEBULIZER TWICE DAILY 200 mL 5 Active pantoprazole EC (Protonix) 40 MG tabletIndication s:PUD (peptic ulcer disease) Take 1 (one) tablet by mouth once daily 30 tablet 5 Active predniSONE (Deltasone) 5 MG tabletIndication s:Sarcoidosis Take 1 (one) tablet by mouth once daily 30 tablet 5 Active Active Problems Problem Noted Date Diagnosed Date Pneumothorax 12/22/2014 Other nonspecific abnormal finding of lung field 10/27/2014 Encounters Date Type Department Care Team Description 10/02/2024 Refill [facility] - Pulmonology [address] [place] [address], [place] [address] Dixie Rubi MD MEDICATION REFILL from Last 3 Months Immunizations Immunization Administration Dates Next Due ANGELITA PATEL PRIMARY 18+YR 06/07/2020 FLU VACCINE TRI IIV3 SPLIT PF IM (FLUVIRIN) 12/25 INFLUENZA VACCINE 01/06/2018,01/06/2017 INFLUENZA VACCINE, QUADR. (F LUZONE; FLULAVAL; FLUARIX; AFLURIA QUADRIVALENT; 6MO+), 0.5 ML (IIV4) 02/08/2019 Influenza Intradermal 01/06/2017 iNFLUENZA VACCINE, RECOM-HAWKINS, QUADR. 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 Gender Identity Not on file Sexual Orientation Not on file Last Filed Vital Signs Vital Sign Reading Time Taken Comments Blood Pressure 121/80 06/14/2024 8:43 AM CDT Pulse 71 06/14/2024 8:43 AM CDT Temperature 36.9 C (98.4 F) 08/26/2022 11:09 AM CDT Respiratory Rate 17 06/14/2024 8:43 AM CDT Oxygen Saturation 97% 06/14/2024 8:43 AM CDT Inhaled Oxygen Concentration - - Weight 47.6 kg (105 lb) 06/14/2024 8:43 AM CDT Height 157.5 cm (5' 2) 06/14/2024 8:43 AM CDT Body Mass Index 19.2 06/14/2024 8:43 AM CDT Plan of Treatment Upcoming Encounters Date Type Department Care Team (Late st Contact Info) Description 12/20/2024 9:30 AM CDT Office Visit [facility] - Pulmonology [address] [place] [address], [place] [address] Dixie Rubi MD [address] [place] [address] DIV OF PULMONARY/[place] [address] Health Maintenance Due Date Last Done Comments COLON MONITORING 1958 COLONOSCOPY - COLON CA SCREENING 1958 CT COLONOGRAPHY - COLON CA SCREENING 1958 FIT - COLON CA SCREENING 1958 FLEX SIG - COLON CA SCREENING 1958 LIPID TESTING 1958 MEDICARE AWV 12 MONTHS 1958 HEPATITIS C SCREENING 09/24/1976 DTAP/TDAP/TD VACCINES (1 - Tdap) 1977 PNEUMOCOCCAL VACCINE 50+ (1 of 2 - PCV) 1977 ZOSTER VACCINE (1 of 2) 2008 Respiratory Syncytial Virus (RSV) Vaccine Pt: or over 60 yrs (1 - Risk 60-74 years 1-dose series) 2018 COLOGUARD (AGES 45-75) - COLON CA SCREENING 11/19/2023 11/18/2020 Colorectal Cancer Screening 11/19/2023 DEPRESSION SCREENING 03/27/2024 COVID-19 VACCINE (2 - 2024- season) 2024 06/07/2020 INFLUENZA VACCINE (#1) 2024 , 12/18/2020, 01/23/2020, Additional history exists MAMMOGRAM 09/10/2025 09/11/2023, 08/25, 07/16/2020, Additional history exists BONE DENSITY TESTING Completed 06/12/2018 HEPATITIS B VACCINE Aged Out No longe r eligible based on patient's age to complete this topic HIB VACCINE Aged Out No longer eligi ble based on patient's age to complete this topic HPV VACCINE Aged Out No longer eligi ble based on patient's age to complete this topic MENINGOCOCCAL (Group B) VACCINE SHARED DECISION-MAKING Aged Out No longer eligible based on patient's age to complete this topic MENINGOCOCCAL GROUPS A/C/Y/W VACCINE Aged Out No longer eligible based on patient's age to complete this topic Insurance MEDICAID - OUT OF STATE MEDICARE MEDICAID - [place] MEDICARE AETNA Care Teams Lump Roller Relationship Specialty Start Date End Date Yazmin Hargrove MD [address] [place] [address] [facility] - General 10/02/14
--- OUTSIDE RECORDS SUMMARY | 2024-12-06 08:26 | XMS_ITS | Encounter Summary ---
Author Organization [facility] [employer] [facility] Address [address] [place] [address] Care Team Providers Care Petrophysicist Name Role Phone Yazmin Hargrove MD Primary Care Provider Reason for Visit * Reason Comments Medication Refill Encounter Details Date Type Department Care Team ([facility] Contact Info) Description 04/19/2021 Refill [facility] Oncology and Hematology - [place] [address] [place] [address] Terry Villagomez MD [facility] [address] [place] [phone] Social History Tobacco Use Types Packs/Day Years Used Date Smoking Tobacco: Every Day Cigarettes 0.5 35 E-Cigarette/Mist Inh alation Device Smokeless Tobacco: Never Alcohol Use Standard Drinks/Week [...] Upcoming Encounters Date Type Department Care Team ([facility] Contact Info) Description 12/13/2024 10:00 AM CDT Office Visit [facility] Oncology and Hematology - [place] [address] [place] [address] Terry Villagomez MD [address] [facility] [address] [place] [phone] documented as of this encounter Visit Diagnoses Not on filedocumented in this encounter Care Teams Petrophysicist Relationship Specialty Start Date End Date Yazmin Hargrove MD [address] [place] [address] PCP - General Gastroenterology 08/24/16 documented as of this encounter
--- OUTSIDE RECORDS SUMMARY | 2024-12-06 08:26 | XMS_ITS | Encounter Summary ---
Author Organization [facility] Address [address] [place] [address] Care Team Providers Care Rn Med Surg Name Role Phone Yazmin Hargrove MD Primary Care Provider Encounter Details Date Type Department Care Team (Late Contact Info) Description 08/25/2016 Chart Note [facility] Radiation Therapy [address] [place] [address] [place] [address] [place] [address] Social History Tobacco Use Types Packs/Day Years Used Date Smoking Tobacco: Every Day Cigarettes 0.5 35 Comments No Sex and Gender Information Value Date Recorded Sex Assigned at Not on file Legal Sex Female 4:01 PM CDT Gender Identity Not on file Sexual Orientation Not on file documented as of this encounter Plan of Treatment Upcoming Encounters Date Type Department Care Team (Late Contact Info) Description 12/13/2024 10:00 AM CDT Office Visit [facility] Oncology and Hematology - [place] [address] [facility] [address] [place] [address] Terry Villagomez MD [address] [facility] [address] [place] [address] documented as of this encounter Visit Diagnoses Not on filedocumented in this encounter Care Teams Rn Med Surg Relationship Specialty Start Date End Date Yazmin Hargrove MD [address] [place] [phone] PCP - General Gastroenterology 08/24/16 documented as of this encounter
--- OUTSIDE RECORDS SUMMARY | 2024-12-06 08:26 | XMS_ITS | Encounter Summary ---
Author Organization [facility] Address [address] [place] [address] Care Team Providers Care Steeplechase Jockey Name Role Phone Yazmin Hargrove MD Primary Care Provider [phone] Encounter Details Date Type Department Care Team (Late st Contact Info) Description 09/22/2020 Telephone [facility] [address] [place] [address] Dixie Rubi MD [address] OF PULMONARY/[place] [address] Social History Tobacco Use Types Packs/Day Years Used Date Smoking Tobacco: Every Day Cigarettes Last attempted to quit: 09/03/2014 Smokeless Tobacco: Never Alcohol Use Standard Drinks/Week Comments No 0 (1 standard drink = 0.6 oz pur e alcohol) Comments No Sex and Gender Information Value Date Recorded Sex Assigned at Not on file 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 Rubi Reason for call: Pt was not aware she had an appt set for 09/25/2020, she is out of town and cancelled this appt. She states she was to f/u with you the end of October or November, your next available is not until December. She did not make a future appt she does not want to be taken off her oxygen without your approval or seeing you. Please reach out to pt to advise her on her next appt. Patient Call Back number: [phone] documented in this encounter Plan of Treatment Upcoming Encounters Date Type Department Care Team (Late st Contact Info) Description 12/20/2024 9:30 AM CDT Office Visit [facility] - Pulmonology [address] [place] [address], [place] [address] Dixie Rubi MD [address] [place] [address] [address] DIV OF PULMONARY/[place] [address] documented as of this encounter Visit Diagnoses Not on filedocumented in this encounter Care Teams Steeplechase Jockey Relationship Specialty [place] [address] [place] [phone] PCP - General 10/02/14 documented as of this encounter
--- OUTSIDE RECORDS SUMMARY | 2024-12-06 08:26 | XMS_ITS | Encounter Summary ---
Author Organization [facility] Address [address] [facility] [place] [address] Care Team Providers Care Peoplesoft Financials Name Role Phone Yazmin Hargrove MD Primary Care Provider Reason for Visit * Reason Onset Date Comments MEDICATION REFILL 03/07/2018 Encounter Details Date Type Department Care Team (Late Contact Info) Description 03/07/2018 Refill [facility] Pulmonary, Critical Care and Sleep Medicine [address] [place] [address] Dixie Rubi MD [address] [place] [address] [address] DIV OF PULMONARY/[place] [address] MEDICATION REFILL Social History Tobacco Use Types Packs/Day Years Used Date Smoking Tobacco: Every Day Cigarettes Last attempted to quit: 09/03/2014 Smokeless Tobacco: Never Alcohol Use Standard Drinks/Week Comments No 0 (1 standard drink = 0.6 oz pur e alcohol) Comments No Sex and Gender Information Value Date Recorded Sex Assigned at Not on file 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 Gender Identity Not on file Sexual Orientation Not on file documented as of this encounter Plan of Treatment Upcoming Encounters Date Type Department Care Team (Late Contact Info) Description 12/20/2024 9:30 AM CDT Office Visit [facility] - Pulmonology [address] [place] [address], [place] [address] Dixie Rubi MD [address] [place] [address] [address] DIV OF PULMONARY/[place] [address] documented as of this encounter Visit Diagnoses Not on filedocumented in this encounter Care Teams Peoplesoft Financials Relationship Specialty Start Date End Date Yazmin Hargrove MD [address] [place] [address] PCP - General 10/02/14 documented as of this encounter
--- OUTSIDE RECORDS SUMMARY | 2024-12-06 08:26 | XMS_ITS | Encounter Summary ---
Author Organization [facility] Address [address] [facility] [place] [address] Care Team Providers Care Healthcare Project Manager Name Role Phone Yazmin Hargrove MD Primary Care Provider Reason for Visit * Reason Onset Date Comments MEDICATION REFILL 06/24/2018 Encounter Details Date Type Department Care Team (Late Contact Info) Description 06/24/2018 Refill [facility] Pulmonary, Critical Care and Sleep Medicine [address] [place] [address] Dixie Rubi MD [address] [place] [address] [address] DIV OF PULMONARY/[place] [address] MEDICATION REFILL Social History Tobacco Use Types Packs/Day Years Used Date Smoking Tobacco: Every Day Cigarettes Last attempted to quit: 09/03/2014 Smokeless Tobacco: Never Alcohol Use Standard Drinks/Week Comments No 0 (1 standard drink = 0.6 oz pur e alcohol) Comments No Sex and Gender Information Value Date Recorded Sex Assigned at Not on file 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 Gender Identity Not on file Sexual Orientation Not on file documented as of this encounter Plan of Treatment Upcoming Encounters Date Type Department Care Team (Late Contact Info) Description 12/20/2024 9:30 AM CDT Office Visit [facility] - Pulmonology [address] [place] [address], [place] [address] Dixie Rubi MD [address] [place] [address] [address] DIV OF PULMONARY/[place] [address] documented as of this encounter Visit Diagnoses Diagnosis Sarcoidosis documented in this encounter Care Teams Healthcare Project Manager Relationship Specialty Start Date End Date Yazmin Hargrove MD [address] [place] [phone] PCP - General 10/02/14 documented as of this encounter
[2024-12-06 08:47] LABS: Hematocrit 39.5 % (37.0-47.0); Hemoglobin 12.7 g/dL (12.0-15.0); Immature Granulocyte Percent A 0.4 % (0-0.5); Lymphocytes Absolute Auto 0.99 K/mm3 (0.9-3.2); Mean Corpuscular HGB Conc 32.2 g/dl (32-36); Mean Corpuscular Hemoglobin 30.6 pg (26-34); Mean Corpuscular Volume 95.2 fl (80-100); Nucleated Red Blood Cells Absolute Auto 0.000 K/mm3 (0.0-0.012); Nucleated Red Blood Cells Perc 0.0 % (0.0-0.2); Platelet Count Result 283 k/mm3 (150-375); Red Blood Count 4.15 M/mm3 (4.2-5.4); White Blood Count 7.7 K/mm3 (4.5-10.0)
[2024-12-06 14:19] LABS: Alanine Aminotransferase 20 U/L (6-35); Albumin Level 4.2 g/dL (3.5-5.1); Alkaline Phosphatase 85 U/L (38-126); Anion Gap 8 mmol/L (4-12); Aspartate Amino Transferase 46 U/L (14-36); Bilirubin,Total 0.4 mg/dL (0.2-1.3); Blood Urea Nitrogen 12 mg/dL (7-17); Calcium 9.0 mg/dL (8.4-10.2); Carbon Dioxide 34 mmol/L (22-30); Chloride 96 mmol/L (98-107); Estimated Glomerular Filt Rate > 60; Glucose 108 mg/dL (65-110); Potassium 3.7 mmol/L (3.4-5.0); Sodium 138 mmol/L (137-145); Total Protein 8.2 g/dL (6.3-8.2)
== END 2024-12-06 08:21 | disposition home or self-care (01) ==
PROVIDERS: PCP Internal Medicine Infectious Disease; Visit Provider Internal Medicine Hematology & Oncology
DX: C50.511 Malignant neoplasm of lower-outer quadrant of right female breast (principal)
CPT/HCPCS: 36415; 80053; 85025; 86300

== ENCOUNTER 2024-12-13 10:21 | Outpatient (CLI) | payer MEDICARE, MEDICAID, SELFPAY ==
--- OUTSIDE RECORDS SUMMARY | 2024-12-13 10:00 | XMS_ITS | Encounter Summary ---
Author Organization [facility]in [facility] Address [address] [place] [address] Care Team Providers Care Sales And Marketing Analyst Name Role Phone Yazmin Hargrove MD Primary Care Provider Reason for Referral * PET Scan (Routine) - Open Specialty Diagnoses / Procedures Referred By Contac t Referred To Contact Diagnoses Malignant neoplasm of lower-outer quadrant of right female breast, unspecified estrogen receptor status (CMS/HCC) Procedures PET TUMOR OR INFECTION IMG W CT SKB MD Terry Villagomez MD [address] [place] [phone] Phone: tel: fax: [place] [address] Referral ID Status Reason Start Date Expiration Date V isits Requested Visits Authorized [id number] Open STL CTS 12/13/2024 01/13/2026 1 1 Reason for Visit * Reason Comments Cancer Follow Up Encounter Details Date Type Department Care Team (Late st Contact Info) Description 12/13/2024 10:00 AM CDT Office Visit [facility] Oncology and Hematology [place] [address] [address] Terry Villagomez MD [address] [place] [address] Malignant neoplasm of lower-outer quadrant of right female breast, unspecified estrogen receptor status (CMS/HCC) (Primary Dx) Social History Tobacco Use Types Packs/Day Years [...] on file documented as of this encounter Last Filed Vital Signs Vital Sign Reading Time Taken Comments Blood Pressure 118/67 12/13/2024 9:46 AM CDT Pulse 68 12/13/2024 9:43 AM CDT Temperature 36.2 C (97.1 F) 12/13/2024 9:43 AM CDT Respiratory Rate 17 12/13/2024 9:43 AM CDT Oxygen Saturation 86% 12/13/2024 9:46 AM CDT Inhaled Oxygen Concentration - - Weight 47.2 kg (104 lb) 12/13/2024 9:43 AM CDT Height - - Body Mass Index 19.02 10/01/2021 9:33 AM CDT documented in this encounter Progress Notes * Terry Villagomez MD - 12/13/2024 10:10 AM CDT HEMATOLOGY / ONCOLOGY PROGRESS NOTE Patient Identification: Name: Jes Reilly Age: 64 y.o. Sex: female : 1960 DIAGNOSIS T1b N0 MX stage I invasive ductal carcinoma of right breast ER DE positive HER- 2/elmer negative diagnosed June 2016 CURRENT TREATMENT Endocrine therapy with Arimidex started October 28, 2016 TREATMENT HISTORY Right-sided lumpectomy July 18, 2016 Completed radiation October 26, 2016 SUBJECTIVE Patient came to the office for follow-up visit. She has been dealing with some cough along with shortness of breath and tiredness and fatigue. She is in coughing yellow-greenish sputum. Weight and appetite stable. No other new complaints. Review of system Constitutional: Patient did not mention fevers, sweats, weight and appetite stable, denies any tiredness and fatigue HEENT: Patient did not mention sinus congestion, hearing or vision problems Respiratory: Complain of cough with yellow-green sputum Cardiovascular: Patient did not mention chest pain, exertional chest pressure/discomfort, nausea, syncope, shortness of breath GI: Patient did not mention constipation, diarrhea, dsyphagia, reflux symptoms, vomiting, melena : Patient did not mention dysuria, frequency, incontinence, urgency Integumentary system: no lymphadenopathy, sweats, flushing Musculoskeletal: Patient not mention: myalgia, arthralgia Neurological: Patient did not mention blurry or disturbed vision, numbness/weakness, dizziness Skin: No lumps, bumps or rashes. 12 point review of system was reviewed Objective: Vital signs in last 24 hours: As per nursing note Exam: General appearance: alert, cooperative, no distress, appears stated age Head: normocephalic, without obvious abnormality, atraumatic Eyes: conjunctivae/corneas clear, EOM's intact Ears: normal external ear canals AU Nose: Nares normal. Septum midline. Mucosa normal. No drainage or sinus tenderness Throat: Lips, mucosa, and tongue normal. Teeth and gums normal Neck: supple, symmetrical, trachea midline. Lungs: clear to auscultation bilaterally Heart: regular rate and rhythm, S1, S2 normal, no murmur, click, rub or gallop Abdomen: soft, non-tender. Bowel sounds normal. No masses, No organomegaly Extremities: extremities normal, atraumatic, no cyanosis or edema Skin: Skin color, texture, turgor normal. No rashes or lesions Lymph nodes: No lymphadenopathy Neuro: No obvious focal deficit Bilateral breast examination showed no masses and lymphadenopathy Exam as above [facility] Labs from September 13 showed CA 15-3 20 hemoglobin 12.0 total bilirubin 0.5 iron saturation 15 vitamin B12 426 Labs from May 24 showed WBC 7.8 hemoglobin 12.7 platelet 303,000 creatinine 0.8 CA 15-3 23 Labs from December 06 showed creatinine 0.8 total bilirubin 0.4 hemoglobin 12.7 CA 15-3 elevated at 33 Assessment: Plan: Patient Active Problem List Diagnosis Date Noted Screening for breast cancer 11/17/2017 Aromatase inhibitor use 11/17/2017 Malignant neoplasm of lower-outer quadrant of right breast of female, estrogen receptor positive (CMS/HCC) 08/24/2016 Tobacco use 08/24/2016 Moderately differentiated invasive mammary carcinoma of the right breast ER DE positive HER-2/elmer negative status post lumpectomy in June 2016. Arimidex was discontinued in August 2021. Labs noted. Tumor marker has gone up. There is no evidence of relapse of disease on examination. Patient had bilateral screening mammogram done on November 08, 2024 showed no evidence of disease. CT scan for lung cancer screening was done on November 08 as well that showed a stable 11 mm left upper lobe nodule along with subcentimeter nodules bibasilarly likely chronic small airway infection process. I will order the PET scan due to elevated tumor marker and phone visit in 1 week. Upper respiratory infection. I will prescribe her Levaquin. Lung cancer screening. CT scan done on November 08, 2024 showed stable 11 mm left upper lobe nodule. Anxiety. Primary care physician referred to the psychiatrist. She will contact them for the referral. In the meantime we will give her supply of clonazepam until she is seen by the psychiatrist. Osteopenia. Patient is on vitamin D. Phone visit in 1 week 12/13/2024 Terry Villagomez MD documented in this encounter Plan of Treatment Upcoming Encounters Date Type Department Care Team (Late st Contact Info) Description 01/07/2025 4:30 PM CDT Telephone Check Up [facility] Oncology and Hematology - [place] [address] [facility] [address] [place] [address] Terry Villagomez MD [address] [facility] [address] [place] [address] Scheduled Orders Name Type Priority Associated Diagnoses Orde r Schedule PET TUMOR OR INFECTION IMG W CT SKB MDTH Imaging Routine Malignant neoplasm of lower-outer quadrant of right female breast, unspecified estrogen receptor status (CMS/HCC) Expected: 12/20/2024, Expires: 12/13/2025 documented as of this encounter Visit Diagnoses Diagnosis Malignant neoplasm of lower-outer quadrant of right female breast, unspecified estrogen receptor status (CMS/HCC)- Primary documented in this encounter Care Teams Sales And Marketing Analyst Relationship Specialty [place] [address] [place] [phone] PCP - General Gastroenterology 08/24/16 documented as of this encounter
--- OUTSIDE RECORDS SUMMARY | 2024-12-13 10:25 | XMS_ITS | Encounter Summary ---
Author Organization [facility] Address [address] [place] [address] Care Team Providers Care Gymnastics Instructor Name Role Phone Yazmin Hargrove MD Primary Care Provider Encounter Details Date Type Department Care Team (Late Contact Info) Description 08/25/2016 Chart Note [facility] Radiation Therapy [address] [place] [address] [place] [address] [place] [address] Social History Tobacco Use Types [...] Department Care Team (Late Contact Info) Description 01/07/2025 4:30 PM CDT Telephone Check Up [facility] Oncology and Hematology - [place] [address] [facility] [address] [place] [address] Terry Villagomez MD [address] [facility] [address] [place] [address] documented as of this encounter Visit Diagnoses Not on filedocumented in this encounter Care Teams Gymnastics Instructor Relationship Specialty Start Date End Date Yazmin Hargrove MD [address] [place] [phone] PCP - General Gastroenterology 08/24/16 documented as of this encounter
--- OUTSIDE RECORDS SUMMARY | 2024-12-13 10:25 | XMS_ITS | Encounter Summary ---
Author Organization 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 Please advise. Pharmacy of record: [facility] [address] [facility] [address] [phone] Patient Call Back number: [phone] documented in this encounter Plan of Treatment Upcoming Encounters Date Type Department Care Team (Late st Contact Info) Description 12/20/2024 9:30 AM CDT Office Visit [facility] - Pulmonology [address] [place] [address], [place] [phone] Dixie Rubi MD [address] [place] [address] [address] DIV OF PULMONARY/[place] [address] documented as of this encounter Visit Diagnoses Not on filedocumented in this encounter Care Teams Business Process Lead Relationship Specialty Start Date End Date Yazmin Hargrove MD [address] [place] [address] PCP - General 10/02/14 documented as of this encounter
--- OUTSIDE RECORDS SUMMARY | 2024-12-13 10:25 | XMS_ITS | Encounter Summary ---
Author Organization [facility] Address [address] [facility] [place] [address] Care Team Providers Care Software Performance Engineer Name Role Phone Yazmin Hargroev MD Primary Care Provider [phone] Encounter Details Date Type Department Care Team (Late st Contact Info) Description 09/22/2020 Telephone [facility] [address] [place] [address] Dixie Rubi MD [address] OF PULMONARY/[place] [address] Social History Tobacco Use Types Packs/Day Years Used Date Smoking Tobacco: Every Day Cigarettes Last attempted to quit: 09/03/2014 Smokeless Tobacco: Never Alcohol Use Standard Drinks/Week Comments No 0 (1 standard drink = 0.6 oz pur e alcohol) Comments No Sex and Gender Information Value Date Recorded Sex Assigned at Not on file Legal Sex Female 5:23 PM RED CAP Gender Identity Not on file Sexual Orientation [...] her next appt. Patient Call Back number: [phone] documented in this encounter Plan of Treatment Upcoming Encounters Date Type Department Care Team (Late st Contact Info) Description 12/20/2024 9:30 AM CDT Office Visit [facility] - Pulmonology [address] [place] [address], [place] [address] Dixie Rubi MD [address] [place] [address] [address] DIV OF PULMONARY/[place] [address] documented as of this encounter Visit Diagnoses Not on filedocumented in this encounter Care Teams Software Performance Engineer Relationship Specialty [place] [address] [place] [phone] PCP - General 10/02/14 documented as of this encounter
--- OUTSIDE RECORDS SUMMARY | 2024-12-13 10:25 | XMS_ITS | Clinical Summary ---
Author Organization [facility] Address [address] [facility] [place] [address] Care Team Providers Care Personal Caregiver Name Role Phone Yazmin Hargrove MD Primary Care Provider [phone] Source Comments [facility],non-owned Affiliates and Associated Physician Practices is amultiple site organization consisting of ambulatory clinics and hospital sitesin [place], [place], [place] and [place]. This disclosure is being madepursuant to the Care Everywhere program and may not contain all information available regarding this patient. Last updated 17.[facility] Allergies No known active allergies Medications * Be aware that medications may not be up to date on this document. Alwaysverify current medications with the patient. Levothyroxine Sodium (SYNTHROID PO) Take 50 mg by mouth once daily Active lisinopril-hydro CHLOROthiazide (PRINZIDE; ZESTORETIC) 20-12.5 MG tablet 1 (one) tablet by Mouth/Throat route once daily 02/29/20 17 Active sertraline (ZOLOFT) 50 MG tablet Take 1 (one) tablet by mouth at bedtime Active mometasone-formo terol (DULERA) 200-5 MCG/ACT inhalerIndicatio ns:Lung nodule Inhale 2 puffs by mouth 2 times daily 1 Inhaler 11 03/27/19 19 Active Additional Information Patient not taking.Reported on 08/26/2022 anastrozole (ARIMIDEX) 1 MG tablet Take 1 (one) tablet by mouth once daily Active budesonide-formo terol (SYMBICORT) 160-4.5 MCG/ACT inhaler Inhale 2 puffs by mouth 2 times daily 1 Inhaler 04/22/19 19 Active fluticasone-salm eterol (AIRDUO RESPICLICK 232/14) 232-14 MCG/ACT inhalerIndicatio ns:Chronic obstructive pulmonary disease, unspecified COPD type (HCC) Inhale 1 puff by mouth 2 times daily 1 Inhaler 11 05/09/19 19 Active raNITIdine (ZANTAC) 150 MG tablet Take 100 mg by mouth 2 times daily Active umeclidinium (INCRUSE ELLIPTA) 62.5 MCG/INH inhaler Inhale 1 puff by mouth once daily 1 Each 5 08/11/19 19 Active Additional Information Patient not taking.Reported on 02/25/2022 umeclidinium (INCRUSE ELLIPTA) 62.5 MCG/INH inhaler Inhale 1 puff by mouth once daily 1 Each 11 08/14/19 19 Active Additional Information Patient not taking.Reported on 02/25/2022 acetylcysteine 600 MG capsuleIndicatio ns:Chronic obstructive pulmonary disease with acute exacerbation (HCC) Take 1 capsule by mouth 2 times daily 60 capsule 1 02/09/20 19 Active Additional Information Patient not taking.Reported on 10/06/2023 levoFLOXacin (LEVAQUIN) 750 MG tabletIndication s:Chronic obstructive pulmonary disease with acute exacerbation (HCC) Take 1 tablet by mouth once daily 7 tablet 06/26/19 20 Active sertraline (ZOLOFT) 100 MG tablet 06/17/19 21 Active EUTHYROX 100 MCG tablet Take 1 (one) tablet by mouth once daily 10/23/19 21 Active amoxicillin-clav ulanate (AUGMENTIN) 500-125 MG tabletIndication s:Chronic obstructive pulmonary disease with acute exacerbation (HCC),COPD exacerbation (HCC) Take 1 (one) tablet by mouth 2 times daily with morning and evening meal 20 tablet 05/20/19 22 Active Additional Information Patient not taking.Reported on 08/26/2022 predniSONE (DELTASONE) 20 MG tabletIndication s:Chronic obstructive pulmonary disease with acute exacerbation (HCC),COPD exacerbation (HCC) Take 1 (one) tablet by mouth once daily 5 tablet 05/20/19 22 Active Additional Information Patient not taking.Reported on 10/06/2023 predniSONE (DELTASONE) 20 MG tabletIndication s:Chronic obstructive pulmonary disease with acute exacerbation (HCC) Take 1 (one) tablet by mouth once daily 5 tablet 05/20/19 22 Active Additional Information Patient not taking.Reported on 10/06/2023 amoxicillin-clav ulanate (AUGMENTIN) 875-125 MG tabletIndication s:Chronic obstructive pulmonary disease with acute exacerbation (HCC) Take 1 (one) tablet by mouth 2 times daily with morning and evening meal 20 tablet 05/20/19 22 Active Additional Information Patient not taking.Reported on 08/26/2022 Nirmatrelvir&Rit onavir 300/100 20 x 150 MG & 10 x 100MG Oral Tablet Therapy Pack (Paxlovid) Take two 150mg tablets (300mg) of nirmatrelvir and one tablet (100mg) of ritonavir together as a single dose by mouth twice daily for 5 days. Do not crush, chew, or cut in half. 30 tablet 11/22/19 22 Active Additional Information Patient not taking.Reported on 02/25/2022 predniSONE (Deltasone) 20 MG tabletIndication s:COPD exacerbation (HCC) Take 2 (two) tablets by mouth once daily 10 tablet 12/23/19 22 Active Additional Information Patient not taking.Reported on 10/06/2023 azithromycin (Zithromax) 250 MG tabletIndication s:COPD exacerbation (HCC) Take 2 tabs today, then 1 tab daily for next 4 days 6 tablet 12/23/19 22 Active azithromycin (Zithromax) 250 MG tabletIndication s:COPD exacerbation (HCC) Take 2 tabs today, then 1 tab daily for next 4 days 6 tablet 04/28/19 23 Active Additional Information Patient not taking.Reported on 08/26/2022 clonazePAM (KlonoPIN) 1 MG tabletIndication s:Anxiety Take by mouth 3 times daily 42 tablet 08/27/19 23 Active buPROPion (Wellbutrin) 100 MG tabletIndication s:Anxiety,Tobacc o abuse Take 1 (one) tablet by mouth 2 times daily 60 tablet 4 08/27/19 23 Active Nebulizers ([place] [facility] supply)Indicatio ns:Sarcoidosis,C hronic respiratory failure with hypoxia (HCC) Use as directed 1 Each 12/15/19 23 Active NebulizerIndicat ions:Chronic obstructive pulmonary disease with acute exacerbation (HCC) Use as directed Nebulizer 1 Each 12/19/19 23 Active Varenicline Tartrate, Starter, (Chantix Starting Month ) 0.5 MG X 11 & 1 MG X 42 tabletsIndicatio ns:Tobacco abuse Take by mouth as directed Take 0.5 mg daily days 1-3, twice daily days 4-7, then 1 mg twice daily 53 tablet 04/14/19 24 Active albuterol (Proventil;Lisseth bailey) (2.5 MG/3ML) 0.083% nebulizer solutionIndicati ons:Chronic obstructive pulmonary disease, unspecified COPD type (HCC),Lung nodule USE 1 VIAL IN NEBULIZER EVERY 6 HOURS NEEDED FOR WHEEZING 200 mL 11 04/14/19 24 Active varenicline (Chantix) 0.5 MG tabletIndication s:Smoking Cessation Therapy Take 1 (one) tablet by mouth 2 times daily Reasons: Treatment to Stop Smoking 60 tablet 5 10/06/19 24 Active azithromycin (Zithromax) 250 MG tabletIndication s:Chronic obstructive pulmonary disease, unspecified COPD type (HCC) Take 1 tablet by mouth once daily 90 tablet 03/29/19 25 Active albuterol HFA (Proventil; Ventolin; Proair) 108 (90 Base) MCG/ACT inhalerIndicatio ns:Lung nodule INHALE 2 PUFFS BY MOUTH EVERY 6 HOURS NEEDED FOR WHEEZING 18 g 03/29/19 25 Active omeprazole (PriLOSEC) 40 MG capsule Take 1 (one) capsule by mouth 2 times daily Active fluticasone-umec lidin-vilant (Trelegy Ellipta) 200-62.5-25 MCG/ACT inhalerIndicatio ns:Chronic obstructive pulmonary disease with acute exacerbation (HCC) INHALE 1 PUFF ONCE DAILY 60 Each 06/15/19 25 Active azithromycin (Zithromax) 250 MG tabletIndication s:Chronic obstructive pulmonary disease, unspecified COPD type (HCC) Take 1 tablet by mouth once daily 30 tablet 11 06/15/19 25 Active albuterol (Proventil;Lisseth bailey) (2.5 MG/3ML) 0.083% nebulizer solutionIndicati ons:Chronic obstructive pulmonary disease, unspecified COPD type (HCC) Inhale 2.5 (two and one-half) mg by mouth every 4 hours as needed for Shortness of Breath 300 mL 06/15/19 25 Active albuterol HFA (Proventil HFA) 108 (90 Base) MCG/ACT inhalerIndicatio ns:Lung nodule Inhale 2 (two) puffs by mouth every 6 hours as needed (Wheezing) 8.5 g 06/15/19 25 Active acetylcysteine (Mucomyst) 20 % solutionIndicati ons:Chronic obstructive pulmonary disease, unspecified COPD type (HCC) INHALE 3 ML IN NEBULIZER TWICE DAILY 200 mL 06/15/19 25 Active pantoprazole EC (Protonix) 40 MG tabletIndication s:PUD (peptic ulcer disease) Take 1 (one) tablet by mouth once daily 30 tablet 06/15/19 25 Active predniSONE (Deltasone) 5 MG tabletIndication s:Sarcoidosis Take 1 (one) tablet by mouth once daily 30 tablet 06/15/19 25 Active azithromycin (Zithromax) 250 MG tabletIndication s:Sarcoidosis,CO PD exacerbation (HCC) Take 2 tabs today, then 1 tab daily for next 4 days 6 tablet 12/07/19 25 Active predniSONE (Deltasone) 20 MG tabletIndication s:Sarcoidosis,CO PD exacerbation (HCC) Take 1 (one) tablet by mouth once daily 7 tablet 12/07/19 25 Active azithromycin (ZITHROMAX) 250 MG tabletIndication s:Sarcoidosis,CO PD exacerbation (HCC) Take 2 tabs today, then 1 tab daily for next 4 days 6 tablet 02/14/20 21 025 Discontin ued(Reord er) Active Problems Problem Noted Date Diagnosed Date Pneumothorax 12/22/2014 Other nonspecific abnormal finding of lung field 10/27/2014 Encounters Date Type Department Care Team Description 12/06/2024 Orders Only [facility] - Pulmonology [address] [place] [address], [place] [address] Dixie Rubi MD Sarcoidosis; COPD exacerbation (HCC) 10/02/2024 Refill [facility] - Pulmonology [address] [place] [address], [facility] [place] [address] Dixie Rubi MD MEDICATION REFILL from Last 3 Months Immunizations Immunization Administration Dates Next Due COVID AMANDA PRIMARY 18+YR 06/07/2020 FLU VACCINE TRI IIV3 [...] on file 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
--- OUTSIDE RECORDS SUMMARY | 2024-12-13 10:25 | XMS_ITS | Encounter Summary ---
Author Organization [facility] Address [address] [facility] [place] [address] Care Team Providers Care Reel System Operator Name Role Phone Yazmin Hargrove MD Primary Care Provider Reason for Visit * Reason Onset Date Comments MEDICATION REFILL 06/24/2018 Encounter Details Date Type Department Care Team (Late Contact Info) Description 06/24/2018 Refill [facility], Critical Care and Sleep Medicine [address] [place] [address] Dixie Rubi MD [address] [place] [address] 2[address] DIV OF PULMONARY/[place] [address] MEDICATION REFILL Social History Tobacco Use Types Packs/Day Years Used Date Smoking Tobacco: Every Day Cigarettes Last attempted to quit: 09/03/2014 Smokeless Tobacco: Never Alcohol Use Standard Drinks/Week Comments No 0 (1 standard drink = 0.6 oz pur e alcohol) Comments No Sex and Gender Information Value Date Recorded Sex Assigned at Not on file 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 Gender Identity Not on file Sexual Orientation Not on file documented as of this encounter Plan of Treatment Upcoming Encounters Date Type Department Care Team (Late Contact Info) Description 12/20/2024 9:30 AM CDT Office Visit [facility] - Pulmonology [address] [place] [address], [place] [address] Dixie Rubi MD [address] [place] [address] [address] DIV OF PULMONARY/[place] [address] documented as of this encounter Visit Diagnoses Diagnosis Sarcoidosis documented in this encounter Care Teams Reel System Operator Relationship Specialty Start Date End Date Yazmin Hargrove MD [address] [place] [phone] PCP - General 10/02/14 documented as of this encounter
--- OUTSIDE RECORDS SUMMARY | 2024-12-13 10:25 | XMS_ITS | Clinical Summary ---
Author Organization [facility] Address [address] [place] [address] Care Team Providers Care Aperture Mask Etcher Name Role Phone Yazmin Hargrove MD Primary [...] mg tablet prednisone 5 mg tablet Active acetylcysteine (MUCOMYST) 20 % (200 mg/mL) [...] by mouth daily. 240 mL 4 Active levoFLOXacin (LEVAQUIN) 500 mg tablet Take 1 Tablet (500 mg) by mouth daily for 7 days. 7 Tablet 5 12/21/19 25 Active Active Problems Problem Noted Date Diagnosed [...] Encounters Date Type Department Care Team Description 12/13/2024 10:00 AM CDT Office Visit [facility] Oncology and Hematology [facility] [address] [place] [address] Terry Villagomez MD Malignant neoplasm of lower-outer quadrant of right female breast, unspecified estrogen receptor status (CMS/HCC) (Primary Dx) 12/10/2024 External Device Data STL ABSTRACTION Provider, Abstract 12/09/2024 Orders Only [facility] Oncology and Hematology - [place] [address] [place] [address] Terry Villagomez MD 12/06/2024 Orders Only [facility] Oncology and Hematology - [place] [address] [place] [address] Terry Villagomez MD 11/27/2024 External Device Data STL ABSTRACTION Provider, Abstract 11/11/2024 Orders Only [facility] Oncology and Hematology [facility] [address] [place] [address] Terry Villagomez MD 11/05/2024 External Device [...] (104 lb) 12/13/2024 9:43 AM CDT Height 157.5 cm (5' 2) 10/01/2021 9:33 AM CDT Body Mass Index 19.02 10/01/2021 9:33 AM CDT Plan of Treatment Upcoming Encounters Date Type Department Care Team (Late st Contact Info) Description 01/07/2025 4:30 PM CDT Telephone Check Up [facility] Oncology and Hematology [place] [address] [place] [address] Terry Villagomez MD [address] [place] [address] Health Maintenance Due Date Last Done Comments DTAP/TDAP/TD VACCINES (1 - Tdap) 1977 FIT-DNA Q 3 years 09/30/2003 FIT/FOBT Q 1 year 09/30/2003 Flex Sig/CT Colonography Q 5 years 09/30/2003 Lung Cancer Screening 2008 ZOSTER VACCINE (1 of 2) 2008 RSV VACCINE (60+ or ) (1 - Risk 60-74 years 1-dose series) 2018 OSTEOPOROSIS SCREENING 09/30/2023 06/12/2018 Medicare [place]) Preventative Visit/Annual Wellness Visit 03/27/2024 INFLUENZA VACCINE (#1) 2024 , 12/18/2020, 01/23/2020, Additional history exists COVID-19 Vaccine (3 - 2024-2 6 season) 2024 02/17/2021, 06/02/2020 BREAST CANCER SCREENING 11/08/2025 11/09/19 25, 09/11/2023, 09/08/2022, Additional history exists COLORECTAL SCREENING 12/23/2030 12/23/2020 Colorectal Cancer Screening 12/23/2030 PNEUMOCOCCAL VACCINE 50+ YEARS Completed 11/28/2023 Procedures Procedure Name Priority Date/Time Associated Diagnosis Comments CHG CA 15 3 Routine 12/06/2024 1:30 PM CDT COMPREHENSIVE METABOLIC PANEL Routine 12/06/2024 12:45 PM CDT CBC WITH AUTODIFFERENTIAL Routine 2024 12:27 PM CDT MAMMO SCREENING BILAT Routine 11/08/2024 10:[address] CHEST W CONTRAST Routine 11/08/2024 9 :44 AM CDT XR DEXA BONE DENSITY AXIAL 1 OR MORE SITES Routine 06/12/2018 Malignant neoplasm of lower-inner quadrant of right breast of female, estrogen receptor positive (CMS/HCC) from Last 3 Months or Most Recently Relevant to Health Maintenance Results * CHG CA 15 3 (12/06/2024 1:30 PM CDT) Terry Villagomez MD [facility] - LABORATORY Final Result * COMPREHENSIVE METABOLIC PANEL (12/06/2024 12:45 PM CDT) Blood Result Lele Villagomez MD CHEMISTRY ORDERABLES Final Resu lt * CBC WITH AUTODIFFERENTIAL (12/06/2024 12:27 PM CDT) Blood Result Lele Villagomez MD HEMATOLOGY ORDERABLES Final Res ult * MAMMO SCREENING BILAT (11/08/2024 10:57 AM CDT) Anatomical Region Laterality Modality Breast Bilateral Mammography Result Lele Villagomez MD MAMMO ORDERABLES Final Result * CT CHEST W CONTRAST (11/08/2024 9:44 AM CDT) Anatomical Region Laterality Modality Chest Computed Tomogra phy Result Lele Villagomez MD CT ORDERABLES Final Result * XR DEXA BONE DENSITY AXIAL 1 OR MORE SITES (06/12/2018) Anatomical Region Laterality Modality Other Result Lele Villagomez MD DIAGNOSTIC IMAGING ORDERABLES F inal Result from Last 3 Months or Most Recently Relevant to Health Maintenance Insurance [place] [facility] Care Teams Aperture Mask Etcher Relationship Specialty Start Date End Date Yazmin Hargrove MD [address] [place] [address] PCP - General Gastroenterology 08/24/16
--- OUTSIDE RECORDS SUMMARY | 2024-12-13 10:25 | XMS_ITS | Encounter Summary ---
Author Organization [facility] Address [address] [place] [address] Care Team Providers Care Terra Cotta Mason Name Role Phone Yazmin Hargrove MD Primary Care Provider Encounter Details Date Type Department Care Team (Late Contact Info) Description 12/09/2024 Orders Only [facility] Oncology and Hematology - [place] [address] [place] [address] Terry Villagomez MD [facility] [address] [place] [address] Social History Tobacco Use Types Packs/Day [...] 01/07/2025 4:30 PM CDT Telephone Check Up [facility] Oncology and Hematology - [place] [address] [place] [address] Terry Villagomez MD [address] [place] [address] documented as of this encounter Procedures Procedure Name Priority Date/Time Associated Diagnosis Comments CHG CA 15 3 Routine 12/06/2024 1:30 PM CDT COMPREHENSIVE METABOLIC PANEL Routine 12/06/2024 12:45 PM CDT documented in this encounter Results * CHG CA 15 3 (12/06/2024 1:30 PM CDT) us Terry Villagomez MD [facility] - LABORATORY Final Result * COMPREHENSIVE METABOLIC PANEL (12/06/2024 12:45 PM CDT) Blood us Terry Villagomez MD CHEMISTRY ORDERABLES Final Resu lt documented in this encounter Visit Diagnoses Not on filedocumented in this encounter Care Teams Terra Cotta Mason Relationship Specialty [place] [address] [place] [address] PCP - General Gastroenterology 08/24/16 documented as of this encounter
--- OUTSIDE RECORDS SUMMARY | 2024-12-13 10:25 | XMS_ITS | Encounter Summary ---
Author Organization [facility] Address [address] [place] [address] Care Team Providers Care Woods Manager Name Role Phone Yazmin Hargrove MD Primary Care Provider [phone] Reason for Visit * Reason Onset Date Comments MEDICATION REFILL 10/02/2024 Encounter Details Date Type Department Care Team ([facility] Contact Info) Description 10/02/2024 Refill [facility] - Pulmonology [address] [place] [address], [place] [phone] Dixie Rubi MD [address] [place] [address] OF PULMONARY/[place] [address] MEDICATION REFILL Social History Tobacco Use Types [...] on file 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 Gender Identity Not on file Sexual Orientation Not on file documented as of this encounter Plan of Treatment Upcoming Encounters Date Type Department Care Team ([facility] Contact Info) Description 12/20/2024 9:30 AM CDT Office Visit [facility] - Pulmonology [address] [place] [phone] Dixie Rubi MD [address] OF PULMONARY/[place] [address] documented as of this encounter Visit Diagnoses Diagnosis Anxiety Anxiety state, unspecified documented in this encounter Care Teams Woods Manager Relationship Specialty Start Date End Date Yazmin Hargrove MD [address] [place] [address] PCP - General 10/02/14 documented as of this encounter
--- OUTSIDE RECORDS SUMMARY | 2024-12-13 10:25 | XMS_ITS | Encounter Summary ---
Author Organization [facility] Address [address] [place] [address] Care Team Providers Care Travel Assistant Name Role Phone Yazmin Hargrove MD Primary Care Provider Encounter Details Date Type Department Care Team (Late Contact Info) Description 12/10/2024 External Device Data STL ABSTRACTION Provider, Abstract NO ADDRESS ON FILE Social History Tobacco Use Types Packs/Day Years [...] Upcoming Encounters Date Type Department Care Team ([facility] Contact Info) Description 01/07/2025 4:30 PM CDT Telephone Check Up [facility] Oncology and Hematology - [place] [address] [place] [address] Terry Villagomez MD [address] [facility] [address] [place] [address] documented as of this encounter Visit Diagnoses Not on filedocumented in this encounter Care Teams Travel Assistant Relationship Specialty Start Date End Date Yazmin Hargrove MD [address] [place] [address] PCP - General Gastroenterology 08/24/16 documented as of this encounter
--- OUTSIDE RECORDS SUMMARY | 2024-12-13 10:25 | XMS_ITS | Encounter Summary ---
Author Organization [facility] Address [address] [place] [address] Care Team Providers Care Corporate Development Intern Name Role Phone Yazmin Hargrove MD Primary Care Provider [phone] Encounter Details Date Type Department Care Team (Late Contact Info) Description 03/21/2018 Pharmacist Telephone/Documentatio n [facility] Pulmonary, Critical Care and Sleep Medicine [address] [place] [address] Dixie Rubi MD [address] [place] [address] 2[address] DIV OF PULMONARY/[place] [address] Social History Tobacco Use Types Packs/Day Years Used Date Smoking Tobacco: Every Day Cigarettes Last attempted to quit: 09/03/2014 Smokeless Tobacco: Never Alcohol Use Standard Drinks/Week Comments No 0 (1 standard drink = 0.6 oz pur e alcohol) Comments No Sex and Gender Information Value Date Recorded Sex Assigned at Not on file 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 Gender Identity Not on file Sexual Orientation Not on file documented as of this encounter Plan of Treatment Upcoming Encounters Date Type Department Care Team (Late Contact Info) Description 12/20/2024 9:30 AM CDT Office Visit [facility] - Pulmonology [address] [place] [address], [place] [address] Dixie Rubi MD [address] [place] [address] 2[address] DIV OF PULMONARY/[place] [address] documented as of this encounter Visit Diagnoses Not on filedocumented in this encounter Care Teams Corporate Development Intern Relationship Specialty Start Date End Date Yazmin Hargrove MD [address] [place] [address] PCP - General 10/02/14 documented as of this encounter
--- OUTSIDE RECORDS SUMMARY | 2024-12-13 10:25 | XMS_ITS | Encounter Summary ---
Author Organization [facility] Address [address] [place] [address] Care Team Providers Care Ichthyology Teacher Name Role Phone Yazmin Hargrove MD Primary Care Provider Reason for Visit * Reason Onset Date Comments MEDICATION REFILL 03/07/2018 Encounter Details Date Type Department Care Team (Late Contact Info) Description 03/07/2018 Refill [facility] Pulmonary, Critical Care and Sleep Medicine [address] [place] [address] Dixie Rubi MD [address] [place] [address] 2L DIV OF PULMONARY/[place] [address] MEDICATION REFILL Social History Tobacco Use Types Packs/Day Years Used Date Smoking Tobacco: Every Day Cigarettes Last attempted to quit: 09/03/2014 Smokeless Tobacco: Never Alcohol Use Standard Drinks/Week Comments No 0 (1 standard drink = 0.6 oz pur e alcohol) Comments No Sex and Gender Information Value Date Recorded Sex Assigned at Not on file 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 Gender Identity Not on file Sexual Orientation Not on file documented as of this encounter Plan of Treatment Upcoming Encounters Date Type Department Care Team (Late Contact Info) Description 12/20/2024 9:30 AM CDT Office Visit [facility] - Pulmonology [address] [place] [address], [place] [address] Dixie Rubi MD [address] [place] [address] 2L DIV OF PULMONARY/[place] [address] documented as of this encounter Visit Diagnoses Not on filedocumented in this encounter Care Teams Ichthyology Teacher Relationship Specialty Start Date End Date Yazmin Hargrove MD [address] [place] [address] PCP - General 10/02/14 documented as of this encounter
--- OUTSIDE RECORDS SUMMARY | 2024-12-13 10:25 | XMS_ITS | Encounter Summary ---
Author Organization [facility] Address [address] [place] [address] Care Team Providers Care Cylinder Grinder Name Role Phone Yazmin Hargrove MD Primary Care Provider Reason for Visit * Reason Comments Medication Refill Encounter Details Date Type Department Care Team ([facility] Contact Info) Description 04/19/2021 Refill [facility] Oncology and Hematology - [place] [address] [place] [address] Terry Villagomez MD [address] [employer] [address] [place] [address] Social History Tobacco Use Types Packs/Day [...] Upcoming Encounters Date Type Department Care Team ([facility] Contact Info) Description 01/07/2025 4:30 PM CDT Telephone Check Up [facility] Oncology and Hematology - [place] [address] [place] [address] Terry Villagomez MD [address] [place] [address] documented as of this encounter Visit Diagnoses Not on filedocumented in this encounter Care Teams Cylinder Grinder Relationship Specialty Start Date End Date Yazmin Hargrove MD [address] [place] [address] PCP - General Gastroenterology 08/24/16 documented as of this encounter
[2024-12-13 10:41] LABS: Hematocrit 39.9 % (37.0-47.0); Hemoglobin 12.8 g/dL (12.0-15.0); Immature Granulocyte Percent A 0.5 % (0-0.5); Lymphocytes Absolute Auto 1.22 K/mm3 (0.9-3.2); Mean Corpuscular HGB Conc 32.1 g/dl (32-36); Mean Corpuscular Hemoglobin 30.8 pg (26-34); Mean Corpuscular Volume 95.9 fl (80-100); Nucleated Red Blood Cells Absolute Auto 0.000 K/mm3 (0.0-0.012); Nucleated Red Blood Cells Perc 0.0 % (0.0-0.2); Platelet Count Result 340 k/mm3 (150-375); Red Blood Count 4.16 M/mm3 (4.2-5.4); White Blood Count 8.4 K/mm3 (4.5-10.0)
[2024-12-13 14:09] LABS: Add Urine Microscopic? YES; Appearance Urine Clear (Clear); Glucose Urine UA Negative (Negative); Leukocyte Esterase Ur Negative LEU/UL (Negative); Nitrate Urine Negative (Negative); Non Pathogenic Casts 0-2; Specific Grav Ur 1.018 (1.001-1.035)
[2024-12-13 14:11] LABS: Alanine Aminotransferase 18 U/L (6-35); Albumin Level 4.3 g/dL (3.5-5.1); Alkaline Phosphatase 83 U/L (38-126); Anion Gap 5 mmol/L (4-12); Aspartate Amino Transferase 40 U/L (14-36); Bilirubin,Total 0.4 mg/dL (0.2-1.3); Blood Urea Nitrogen 13 mg/dL (7-17); Calcium 9.0 mg/dL (8.4-10.2); Carbon Dioxide 35 mmol/L (22-30); Chloride 98 mmol/L (98-107); Cholesterol 249 mg/dL (0-200); Estimated Glomerular Filt Rate > 60; Glucose 111 mg/dL (65-110); Potassium 4.0 mmol/L (3.4-5.0); Sodium 138 mmol/L (137-145); Total Protein 8.3 g/dL (6.3-8.2); Triglycerides 97 mg/dL (<150)
[2024-12-13 14:43] LABS: Thyroid Stimulating Hormone 0.110 uIU/mL (0.465-4.680)
[2024-12-13 14:53] LABS: Hemoglobin A1C 5.8 % (<5.7)
[2024-12-13 15:27] LABS: HDL Direct 141 mg/dL
== END 2024-12-13 10:22 | disposition home or self-care (01) ==
PROVIDERS: PCP Internal Medicine Infectious Disease; Visit Provider Internal Medicine Infectious Disease
DX: E03.9 Hypothyroidism, unspecified (principal); E78.00 Pure hypercholesterolemia, unspecified; R73.01 Impaired fasting glucose
CPT/HCPCS: 36415; 80053; 80061; 81001; 83036; 84443; 85025

== ENCOUNTER 2025-01-16 09:08 | Outpatient (CLI) | payer MEDICARE, MEDICAID, SELFPAY ==
--- NOTE | ~2025-01-16 | PE_ITS ---
EXAMINATION: PET skull to mid thigh DATE: 01/16/2025 10:56 INDICATION: Right breast cancer TECHNIQUE: Blood glucose level was 87 mg/dL. 10.344 mCi of 18-fluorodeoxyglucose (18-FDG) was administered i.v. Low dose computed tomography (CT) images were acquired from the base of the brain to the proximal thighs for attenuation correction and anatomic localization. Positron emission tomography (PET) images were acquired in the same distribution beginning 60 minutes after injection. Images including fused PET/CT images were reconstructed in axial, coronal, and sagittal planes. Automated exposure control technique was employed. The dose- length product was 481.20mGy-cm. COMPARISON: None FINDINGS: Head/neck: There is symmetric increased activity in the oral cavity, palatine tonsils, submandibular glands, laryngeal muscles and ocular muscles without CT correlate, likely physiologic. There is and FDG avid borderline enlarged 9 mm level 2 left jugular chain lymph node with maximal SUV of 9.0. There are 2 smaller foci of increased FDG uptake in the right parotid gland potentially also related to lymph nodes with maximal SUV values of 3.4 and 2.9, the former without clearly defined radiologic correlate on the CT imaging, the latter with partially 5 mm nodular soft tissue densities slightly greater attenuation than the surrounding parotid tissue. Chest: Severe emphysema with multiple scattered bilateral calcified pulmonary nodules consistent with old granulomatous disease. Mild FDG uptake with maximal SUV of 1.8 associated with the calcified granulomas in the left lower lobe. There are multiple additional smaller noncalcified pulmonary nodules, many with tree-in-bud pattern in the bilateral lower lobes which are unchanged since 09/11/2023 consistent with endobronchial spread of disease and chronic pneumonia. There also couple chronic nodules in the left upper lobe measuring 11 x 6 mm and 10 x 6 mm which are unchanged since the prior PET study from 2021 and which remains without evident FDG activity and are likely benign. There is mild increased FDG uptake associated with small regions of consolidation at the medial anteroinferior aspect of the right middle lobe and lingula with maximal SUV of 2.6 on the right and 1.9 on the left likely related to atelectasis/scarring. No pleural effusion. Heart size is normal. Small amount of atherosclerotic coronary artery calcification. No pericardial effusion. Thoracic aorta is normal in caliber. No pathologically enlarged or FDG avid thoracic lymphadenopathy. Likely physiologic activity extending along some of the musculature at the bilateral shoulder girdles and along the upper extremity is most prominent at the hands and forearms without radiographic abnormality on CT imaging. There are few tiny densities in the right breast which may be related to prior excisional biopsy with no evident abnormal FDG activity to suggest residual/locally recurrent disease. Abdomen/pelvis/proximal thighs: Physiologic renal accumulation and excretion of FDG activity in the kidneys, bladder and along portions of ureters. Normal degree and heterogenous pattern of increased uptake throughout the liver without radiologic correlate or dominant FDG avid lesion. The gallbladder, pancreas, spleen and bilateral adrenal glands are normal. Mild uptake scattered throughout the bowels without radiologic correlate, also likely physiologic. The uterus is not identified and has likely been surgically resected. No other abnormal foci of increased FDG uptake or pathologically enlarged lymphadenopathy in the abdomen, pelvis or proximal thighs. Musculoskeletal: No suspicious lytic, blastic or abnormally FDG avid bone lesions. IMPRESSION: 1. Changes consistent with likely excisional biopsy the right breast with no evident residual, locally recurrent or metastatic disease in the chest, abdomen or pelvis. 2. Nonspecific mild FDG uptake associated with a normal-sized level 2 left jugular chain lymph node and a couple very small foci of mild uptake in the right parotid gland. Would recommend further evaluation with contrast-enhanced CT of the neck. 3. Severe emphysema with numerous unchanged pulmonary nodules which are without significant FDG activity. Recommend continued annual low-dose noncontrast chest CT screening. Reviewed, dictated and finalized at location A. IMPRESSION: 1. Changes consistent with likely excisional biopsy the right breast with no ev ident residual, locally recurrent or metastatic disease in the chest, abdomen o r pelvis. 2. Nonspecific mild FDG uptake associated with a normal-sized level 2 left jugu lar chain lymph node and a couple very small foci of mild uptake in the right p arotid gland. Would recommend further evaluation with contrast-enhanced CT of t he neck. 3. Severe emphysema with numerous unchanged pulmonary nodules which are without significant FDG activity. Recommend continued annual low-dose noncontrast ches t CT screening.
--- OUTSIDE RECORDS SUMMARY | 2025-01-16 09:34 | XMS_ITS | Encounter Summary ---
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 Please advise. Pharmacy of record: [facility] [id number] [facility] [address] [phone] Patient Call Back number: [phone] documented in this encounter Plan of Treatment Upcoming Encounters Date Type Department Care Team (Late st Contact Info) Description 06/20/2025 9:30 AM CDT Office Visit [facility] - Pulmonology [address] [place] [address], [place] [phone] Dixie Rubi MD [address] [place] [address] 2[address] DIV OF PULMONARY/[place] [address] documented as of this encounter Visit Diagnoses Not on filedocumented in this encounter Care Teams Wool Sacker Relationship Specialty Start Date End Date Yazmin Hargrove MD [address] [place] [address] PCP - General 10/02/14 documented as of this encounter
--- OUTSIDE RECORDS SUMMARY | 2025-01-16 09:34 | XMS_ITS | Clinical Summary ---
Author Organization [facility] Address [address] [place] [address] Care Team Providers Care Ticket Collector Or Usher Name Role Phone Yazmin Hargrove MD Primary Care Provider Allergies No known active allergies Medications sertraline (ZOLOFT) 50 mg tablet Take 50 mg by mouth daily. Active lisinopril-hydro CHLOROthiazide (ZESTORETIC) 20-12.5 mg tablet 7 Active albuterol HFA 90 mcg inhaler Take 2 Puffs by inhalation. 7 Active albuterol (PROVENTIL,TYRELL JAQUI) 2.5 mg /3 mL (0.083 %) Solution [...] by mouth daily in the morning. Active glycopyrrolate-f ormoteroL (Bevespi Aerosphere) 9-4.8 mcg HFA Aerosol Inhaler Take 2 Puffs by inhalation 2 times daily. 2 Active pantoprazole (PROTONIX) 40 mg Tablet, Delayed Release (E.C.) Take 40 mg by mouth daily. 2 Active azithromycin (ZITHROMAX) 250 mg tablet Take 250 mg by mouth daily. 2 Active anastrozole (ARIMIDEX) 1 mg tabletIndication s:Malignant neoplasm of lower-outer quadrant of right female breast, unspecified estrogen receptor status (CMS/HCC),Malign ant neoplasm of lower-outer quadrant of right breast of female, estrogen receptor positive (CMS/HCC),Gangli on cyst,Lung nodule Take 1 tablet by mouth once daily 90 Tablet 5 3 Active megestroL (MEGACE) 400 mg/10 mL (40 mg/mL) suspension Take 5 mL (200 mg) by mouth daily. 240 mL 4 Active clonazePAM (KlonoPIN) 1 mg tabletIndication s:Anxiety state Take 1 Tablet (1 mg) by mouth 3 times daily as needed for Anxiety. 60 Tablet 5 Active levoFLOXacin (LEVAQUIN) 500 mg tablet Take 1 Tablet (500 mg) by mouth daily for 7 days. 7 Tablet 5 12/21/19 25 Active Problems Problem Noted Date Diagnosed Date [...] Encounters Date Type Department Care Team Description 12/25/2024 Telephone [facility] Oncology and Hematology [facility] [address] [place] [address] Terry Villagomez MD Pet scan 12/13/2024 10:00 AM CDT Office Visit [facility] Oncology and Hematology [facility] [address] [place] [address] Terry Villagomez MD Malignant neoplasm of lower-outer quadrant of right female breast, unspecified estrogen receptor status (CMS/HCC) (Primary Dx) 12/13/2024 Orders Only [facility] Oncology and Hematology [facility] [address] [place] [address] Terry Villagomez MD Anxiety state (Primary Dx) 12/10/2024 External Device Data STL ABSTRACTION Provider, Abstract 12/09/2024 Orders Only [facility] Oncology and Hematology - [place] [address] [place] [address] Terry Villagomez MD 12/06/2024 Orders Only [facility] Oncology and Hematology - [place] [address] [place] [address] Terry Villagomez MD 11/27/2024 External Device Data STL ABSTRACTION Provider, Abstract 11/11/2024 Orders Only [facility] Oncology and Hematology - [place] [address] [place] [address] Terry Villagomez MD 11/05/2024 External Device Data [...] Care Team (Late st Contact Info) Description 01/23/2025 4:30 PM CDT Telephone Check Up [facility] Oncology and Hematology - [place] [address] [facility] [address] [place] [address] Terry Villagomez MD [address] [facility] [address] [place] [address] Health Maintenance Due Date Last Done Comments DTAP/TDAP/TD VACCINES (1 - Tdap) 1977 FIT-DNA Q 3 years 09/30/2003 FIT/FOBT Q 1 year 09/30/2003 Flex Sig/CT Colonography Q 5 years 09/30/2003 Lung Cancer Screening 2008 RSV VACCINE (60+ or ) (1 - Risk 50-74 years 1-dose series) 2008 ZOSTER VACCINE (1 of 2) 2008 OSTEOPOROSIS SCREENING 09/30/2023 06/12/2018 Medicare [place] ([place] Preventative Visit/Annual Wellness Visit 03/27/2024 INFLUENZA VACCINE [...] CA 15 3 (12/06/2024 1:30 PM CDT) Result Lele Villagomez MD [facility] - LABORATORY Final Result [...] Most Recently Relevant to Health Maintenance Insurance [address] [facility] Address: [facility] [id number] [place] [address] [facility] Address: [facility] [address] [place] [address] Care Teams Ticket Collector Or Usher Relationship Specialty Start Date End Date Yazmin Hargrove MD [address] [place] [phone] PCP - General Gastroenterology 08/24/16
--- OUTSIDE RECORDS SUMMARY | 2025-01-16 09:34 | XMS_ITS | Encounter Summary ---
Author Organization [facility] Address [address] [place] [address] Care Team Providers Care Freight Representative Name Role Phone Yazmin Hargrove MD Primary Care Provider Reason for Visit * Reason Onset Date Comments MEDICATION REFILL 06/24/2018 Encounter Details Date Type Department Care Team (Late Contact Info) Description 06/24/2018 Refill [facility] Pul[facility], Critical Care and Sleep Medicine [address] [place] [address] Dixie Rubi MD [address] [place] [address] 2[address] DIV OF PULMONARY/[place] [address] MEDICATION REFILL Social History Tobacco Use Types Packs/Day Years Used Date Smoking Tobacco: Every Day Cigarettes Last attempted to quit: 09/03/2014 Smokeless Tobacco: Never Alcohol Use Standard Drinks/Week Comments No 0 (1 standard drink = 0.6 oz pur e alcohol) Comments No Sex and Gender Information Value Date Recorded Sex Assigned at Not on file 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 Gender Identity Not on file Sexual Orientation Not on file documented as of this encounter Plan of Treatment Upcoming Encounters Date Type Department Care Team (Late Contact Info) Description 06/20/2025 9:30 AM CDT Office Visit [facility] - Pulmonology [address] [place] [address], [place] [address] Dixie Rubi MD [address] [place] [address] 2[address] DIV OF PULMONARY/[place] [address] documented as of this encounter Visit Diagnoses Diagnosis Sarcoidosis documented in this encounter Care Teams Freight Representative Relationship Specialty Start Date End Date Yazmin Hargrove MD [address] [place] [phone] PCP - General 10/02/14 documented as of this encounter
--- OUTSIDE RECORDS SUMMARY | 2025-01-16 09:34 | XMS_ITS | Clinical Summary ---
Author Organization [facility] [employer] Address [address] [facility] [place] [address] Care Team Providers Care Emergency Room Doctor Name Role Phone Yazmin Hargrove MD Primary Care Provider Source Comments [facility] [employer],non-owned Affiliates and Associated Physician Practices is amultiple site organization consisting of ambulatory clinics and hospital sitesin [place], [place], [place] and [place]. This disclosure is being madepursuant to the Care Everywhere program and may not contain all information available regarding this patient. Last updated 17.[facility] [employer] Allergies No known active allergies Medications * [...] Active Additional Information Patient not taking.Reported on 12/20/2024 levoFLOXacin (LEVAQUIN) 750 MG tabletIndication s:Chronic obstructive [...] Active Additional Information Patient not taking.Reported on 12/20/2024 amoxicillin-clav ulanate (AUGMENTIN) 875-125 MG tabletIndication s:Chronic obstructive pulmonary disease with acute exacerbation (HCC) Take 1 (one) tablet by mouth 2 times daily with morning and evening meal 20 tablet 05/20/19 22 Active Additional Information Patient not taking.Reported on 12/20/2024 Nirmatrelvir&Rit onavir 300/100 20 x 150 MG [...] Active Additional Information Patient not taking.Reported on 12/20/2024 clonazePAM (KlonoPIN) 1 MG tabletIndication s:Anxiety Take by mouth 3 times daily 42 tablet 08/27/19 23 Active buPROPion (Wellbutrin) 100 MG tabletIndication s:Anxiety,Tobacc o abuse Take 1 (one) tablet by mouth 2 times daily 60 tablet 4 08/27/19 23 Active Nebulizers ([facility] supply)Indicatio ns:Sarcoidosis,C hronic respiratory failure with hypoxia [...] twice daily 53 tablet 04/14/19 24 Active varenicline (Chantix) 0.5 MG tabletIndication s:Smoking Cessation Therapy Take 1 (one) tablet by mouth 2 times daily Reasons: Treatment to Stop Smoking 60 tablet 5 10/06/19 24 Active azithromycin (Zithromax) 250 MG tabletIndication s:Chronic obstructive pulmonary disease, unspecified COPD type (HCC) Take 1 tablet by mouth once daily 90 tablet 03/29/19 25 Active omeprazole (PriLOSEC) 40 MG capsule Take 1 (one) capsule by mouth 2 times daily Active azithromycin (Zithromax) 250 MG tabletIndication s:Chronic obstructive pulmonary disease, unspecified COPD type (HCC) Take 1 tablet by mouth once daily 30 tablet 06/15/19 25 Active albuterol (Proventil;Lisseth bailey) (2.5 [...] needed (Wheezing) 8.5 g 06/15/19 25 Active pantoprazole EC (Protonix) 40 [...] daily 7 tablet 12/07/19 25 Active azithromycin (Zithromax) 250 MG tabletIndication s:COPD exacerbation (HCC) Take 1 (one) tablet by mouth once daily 6 tablet 12/21/19 25 Active fluticasone-umec lidin-vilant (Trelegy Ellipta) 200-62.5-25 MCG/ACT inhalerIndicatio ns:Chronic obstructive pulmonary disease with acute exacerbation (HCC) INHALE 1 PUFF ONCE DAILY 60 Each 12/21/19 25 Active albuterol (Proventil;Lisseth bailey) (2.5 MG/3ML) 0.083% nebulizer solutionIndicati ons:Chronic obstructive pulmonary disease, unspecified COPD type (HCC),Lung nodule USE 1 VIAL IN NEBULIZER EVERY 6 HOURS NEEDED FOR WHEEZING 200 mL 11 12/21/19 25 Active albuterol HFA (Proventil; Ventolin; Proair) 108 (90 Base) MCG/ACT inhalerIndicatio ns:Lung nodule Inhale 2 (two) puffs by mouth every 6 hours as needed for Wheezing 18 g 12/21/19 25 Active acetylcysteine (Mucomyst) 20 % solutionIndicati ons:Chronic obstructive pulmonary disease, unspecified COPD type (HCC) INHALE 3 ML IN NEBULIZER TWICE DAILY 200 mL 12/21/19 25 Active albuterol (Proventil;Lisseth bailey) (2.5 MG/3ML) 0.083% nebulizer solutionIndicati ons:Chronic obstructive pulmonary disease, unspecified COPD type (HCC),Lung nodule USE 1 VIAL IN NEBULIZER EVERY 6 HOURS NEEDED FOR WHEEZING 200 mL 11 04/14/19 24 025 Discontin ued(Reord er) albuterol HFA (Proventil; Ventolin; Proair) 108 (90 Base) MCG/ACT inhalerIndicatio ns:Lung nodule INHALE 2 PUFFS BY MOUTH EVERY 6 HOURS NEEDED FOR WHEEZING 18 g 03/29/19 25 025 Discontin ued(Reord er) fluticasone-umec lidin-vilant (Trelegy Ellipta) 200-62.5-25 MCG/ACT inhalerIndicatio ns:Chronic obstructive pulmonary disease with acute exacerbation (HCC) INHALE 1 PUFF ONCE DAILY 60 Each 06/15/19 025 Discontin ued(Reord er) acetylcysteine (Mucomyst) 20 % solutionIndicati ons:Chronic obstructive pulmonary disease, unspecified COPD type (HCC) INHALE 3 ML IN NEBULIZER TWICE DAILY 200 mL 06/15/19 025 Discontin ued(Reord er) Active Problems Problem Noted Date Diagnosed Date Pneumothorax 12/22/2014 Other nonspecific abnormal finding of lung field 10/27/2014 Encounters Date Type Department Care Team Description 12/20/2024 9:30 AM CDT Office Visit [facility] - Pulmonology [address] [place] [phone] Dixie Rubi MD COPD exacerbation (HCC) (Primary Dx); Chronic obstructive pulmonary disease with acute exacerbation (HCC); Chronic obstructive pulmonary disease, unspecified COPD type (HCC); Lung nodule; Encounter for immunization; Chronic respiratory failure with hypoxia (HCC) 12/20/2024 Travel 12/06/2024 Orders Only [facility] - Pulmonology [address] [place] [phone] Dixie Rubi MD Sarcoidosis; COPD exacerbation (HCC) from Last 3 Months Immunizations Immunization Administration Dates Next Due Route4Me PRIMARY 18+YR 06/07/2020 FLU VACCINE TRI IIV3 SPLIT PF IM (FLUVIRIN) 12/25 INFLUENZA VACCINE 01/06/2018,01/06/2017 INFLUENZA VACCINE, QUADR. (F LUZONE; FLULAVAL; FLUARIX; AFLURIA QUADRIVALENT; 6MO+), 0.5 ML (IIV4) 02/08/2019 Influenza Intradermal 01/06/2017 PNEUMOCOCCAL PCV20 CONJ VAC IM 12/20/2024 iNFLUENZA VACCINE, RECOM-HAWKINS, QUADR. 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 Gender Identity Not on file Sexual Orientation Not on file Last Filed Vital Signs Vital Sign Reading Time Taken Comments Blood Pressure 129/81 12/20/2024 9:07 AM CDT Pulse 85 12/20/2024 9:07 AM CDT Temperature 36.4 C (97.5 F) 12/20/2024 9:07 AM CDT Respiratory Rate 17 12/20/2024 9:07 AM CDT Oxygen Saturation 95% 12/20/2024 9:07 AM CDT Inhaled Oxygen Concentration - - Weight 47.4 kg (104 lb 9.6 oz) 12/20/2024 9:07 A M CDT Height 157.5 cm (5' 2) 12/20/2024 9:07 AM CDT Body Mass Index 19.13 12/20/2024 9:07 AM CDT Plan of Treatment Upcoming Encounters Date Type Department Care Team (Late st Contact Info) Description 06/20/2025 9:30 AM CDT Office Visit [facility] - Pulmonology [address] [place] [address], [place] [address] Dixie Rubi MD [address] [place] [address] OF PULMONARY/[place] [address] Health Maintenance Due Date Last Done Comments COLON MONITORING 1958 COLONOSCOPY - COLON CA SCREENING 1958 CT COLONOGRAPHY - COLON CA SCREENING 1958 FIT - COLON CA SCREENING 1958 FLEX SIG - COLON CA SCREENING 1958 LIPID TESTING 1958 MEDICARE AWV 12 MONTHS 1958 HEPATITIS C SCREENING 09/24/1976 DTAP/TDAP/TD VACCINES (1 - Tdap) 1977 ZOSTER VACCINE (1 of 2) 2008 Respiratory Syncytial Virus (RSV) Vaccine Pt: or over 60 yrs (1 - Risk 60-74 years 1-dose series) 2018 COVID-19 VACCINE (2 - Henrry risk series) 07/05/2020 06/07/2020 COLOGUARD (AGES 45-75) - COLON CA SCREENING 11/19/2023 11/18/2020 Colorectal Cancer Screening 11/19/2023 DEPRESSION SCREENING 03/27/2024 INFLUENZA VACCINE (#1) 2024 2, 12/18/2020, 01/23/2020, Additional history exists MAMMOGRAM 11/08/2026 11/08/2024, 08/25, 09/08/2022, Additional history exists BONE DENSITY TESTING Completed 06/12/2018 PNEUMOCOCCAL VACCINE 50+ Completed 12/20/2024 HEPATITIS B VACCINE Aged Out No longe [...] MEDICAID - [place] MEDICARE AETNA Care Teams Emergency Room Doctor Relationship Specialty Start Date End Date Yazmin Hargrove MD [address] [place] [phone] PCP - General 10/02/14
--- OUTSIDE RECORDS SUMMARY | 2025-01-16 09:34 | XMS_ITS | Encounter Summary ---
Author Organization [facility] Address [address] [place] [address] Care Team Providers Care Trade Mark Examiner Name Role Phone Yazmin Hargrove MD Primary Care Provider Encounter Details Date Type Department Care Team (Late Contact Info) Description 08/25/2016 Chart Note [facility] Radiation Therapy [address] [place] [address] [place] [address] [place] [address] Social History Tobacco Use Types [...] Department Care Team (Late Contact Info) Description 01/23/2025 4:30 PM CDT Telephone Check Up [facility] Oncology and Hematology - [place] [address] [facility] [address] [place] [address] Terry Villagomez MD [address] [facility] [address] [place] [address] documented as of this encounter Visit Diagnoses Not on filedocumented in this encounter Care Teams Trade Mark Examiner Relationship Specialty Start Date End Date Yazmin Hargrove MD [address] [place] [phone] PCP - General Gastroenterology 08/24/16 documented as of this encounter
--- OUTSIDE RECORDS SUMMARY | 2025-01-16 09:34 | XMS_ITS | Encounter Summary ---
Author Organization [facility] Address [address] [facility] [place] [address] Care Team Providers Care Innersole Fitter Name Role Phone Yazmin Hargrove MD Primary Care Provider Reason for Visit * Reason Onset Date Comments MEDICATION REFILL 10/02/2024 Encounter Details Date Type Department Care Team ([facility] Contact Info) Description 10/02/2024 Refill [facility] - Pulmonology [address] [place] [address], [place] [phone] Dixie Rubi MD [address] [place] [address] OF PULMONARY/[place] [address] MEDICATION REFILL Social History Tobacco Use Types [...] on file 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 Gender Identity Not on file Sexual Orientation Not on file documented as of this encounter Plan of Treatment Upcoming Encounters Date Type Department Care Team ([facility] Contact Info) Description 06/20/2025 9:30 AM CDT Office Visit [facility] - Pulmonology [address] [place] [phone] Dixie Rubi MD [address] OF PULMONARY/[place] [address] documented as of this encounter Visit Diagnoses Diagnosis Anxiety Anxiety state, unspecified documented in this encounter Care Teams Innersole Fitter Relationship Specialty Start Date End Date Yazmin Hargrove MD [address] [place] [address] PCP - General 10/02/14 documented as of this encounter
--- OUTSIDE RECORDS SUMMARY | 2025-01-16 09:34 | XMS_ITS | Encounter Summary ---
Author Organization [facility] Address [address] [facility] [place] [address] Care Team Providers Care Sales Office Assistant Name Role Phone Yazmin Hargrove MD Primary Care Provider Encounter Details Date Type Department Care Team (Late st Contact Info) Description 03/21/2018 Pharmacist Telephone/Documentatio n [facility] Pul[facility], Critical Care and Sleep Medicine [address] [place] [address] Dixie Rubi MD [address] [place] [address] [address] DIV OF PULMONARY/[place] [address] Social History Tobacco Use Types Packs/Day Years Used Date Smoking Tobacco: Every Day Cigarettes Last attempted to quit: 09/03/2014 Smokeless Tobacco: Never Alcohol Use Standard Drinks/Week Comments No 0 (1 standard drink = 0.6 oz pur e alcohol) Comments No Sex and Gender Information Value Date Recorded Sex Assigned at Not on file Legal Sex Female 5:23 PM CLINICAL DOCUMENTATION SPEC Gender Identity Not on file Sexual Orientation Not on file documented as of this encounter Plan of Treatment Upcoming Encounters Date Type Department Care Team (Late Contact Info) Description 06/20/2025 9:30 AM CDT Office Visit [facility] - Pulmonology [address] [place] [address], [place] [address] Dixie Rubi MD [address] [place] [address] 2[address] DIV OF PULMONARY/[place] [address] documented as of this encounter Visit Diagnoses Not on filedocumented in this encounter Care Teams Sales Office Assistant Relationship Specialty Start Date End Date Yazmin Hargrove MD [address] [place] [address] PCP - General 10/02/14 documented as of this encounter
--- OUTSIDE RECORDS SUMMARY | 2025-01-16 09:34 | XMS_ITS | Encounter Summary ---
Author Organization [facility] Address [address] [facility] [place] [address] Care Team Providers Care Quality Assurance Supervisor Body Name Role Phone Yazmin Hargrove MD Primary Care Provider [phone] Reason for Visit * Reason Onset Date Comments MEDICATION REFILL 03/07/2018 Encounter Details Date Type Department Care Team (Late Contact Info) Description 03/07/2018 Refill [facility] Pulmonary, Critical Care and Sleep Medicine [address] [place] [address] Dixie Rubi MD [address] [place] [address] 2L DIV OF PULMONARY/[place] [address] MEDICATION REFILL Social History Tobacco Use Types Packs/Day Years Used Date Smoking Tobacco: Every Day Cigarettes Last attempted to quit: 09/03/2014 Smokeless Tobacco: Never Alcohol Use Standard Drinks/Week Comments No 0 (1 standard drink = 0.6 oz pur e alcohol) Comments No Sex and Gender Information Value Date Recorded Sex Assigned at Not on file 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 Gender Identity Not on file Sexual Orientation Not on file documented as of this encounter Plan of Treatment Upcoming Encounters Date Type Department Care Team (Late Contact Info) Description 06/20/2025 9:30 AM CDT Office Visit [facility] - Pulmonology [address] [place] [address], [place] [address] Dixie Rubi MD [address] [place] [address] 2[address] DIV OF PULMONARY/[place] [address] documented as of this encounter Visit Diagnoses Not on filedocumented in this encounter Care Teams Quality Assurance Supervisor Body Relationship Specialty Start Date End Date Yazmin Hargrove MD [address] [place] [address] PCP - General 10/02/14 documented as of this encounter
--- OUTSIDE RECORDS SUMMARY | 2025-01-16 09:34 | XMS_ITS | Encounter Summary ---
Author Organization [facility] [employer] [facility] Address [address] [place] [address] Care Team Providers Care Interior Specialist Name Role Phone Yazmin Hargrove MD Primary Care Provider Reason for Visit * Reason Comments Medication Refill Encounter Details Date Type Department Care Team ([facility] Contact Info) Description 04/19/2021 Refill [facility] Oncology and Hematology - [place] [address] [place] [address] Terry Villagomez MD [address] [facility] [address] [place] [phone] Social History Tobacco Use Types Packs/Day [...] Date Type Department Care Team ([facility] Contact Info) Description 01/23/2025 4:30 PM CDT Telephone Check Up [facility] Oncology and Hematology - [place] [address] [place] [address] Terry Villagomez MD [address] [facility] [address] [place] [phone] documented as of this encounter Visit Diagnoses Not on filedocumented in this encounter Care Teams Interior Specialist Relationship Specialty Start Date End Date Yazmin Hargrove MD [address] [place] [address] PCP - General Gastroenterology 08/24/16 documented as of this encounter
--- OUTSIDE RECORDS SUMMARY | 2025-01-16 09:34 | XMS_ITS | Encounter Summary ---
Author Organization [facility] Address [address] [place] [address] Care Team Providers Care Eye Care Professional Name Role Phone Yazmin Hargrove MD Primary Care Provider Encounter Details Date Type Department Care Team (Late st Contact Info) Description 09/22/2020 Telephone [facility] [address] [place] [address] Dixie Rubi MD [address] OF PULMONARY/[place] [address] Social History Tobacco Use Types Packs/Day Years Used Date Smoking Tobacco: Every Day Cigarettes Last attempted to quit: 09/03/2014 Smokeless Tobacco: Never Alcohol Use Standard Drinks/Week Comments No 0 (1 standard drink = 0.6 oz pur e alcohol) Comments No Sex and Gender Information Value Date Recorded Sex Assigned at Not on file 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 Patient Call Back number: [phone] documented in this encounter Plan of Treatment Upcoming Encounters Date Type Department Care Team (Late st Contact Info) Description 06/20/2025 9:30 AM CDT Office Visit [facility] - Pulmonology [address] [place] [address], [place] [address] Dixie Rubi MD [address] [place] [address] 2[address] DIV OF PULMONARY/[place] [address] documented as of this encounter Visit Diagnoses Not on filedocumented in this encounter Care Teams Eye Care Professional Relationship Specialty Start Date End Date Yazmin Hargrove MD [address] [place] [address] PCP - General 10/02/14 documented as of this encounter
== END 2025-01-16 09:09 | disposition home or self-care (01) ==
PROVIDERS: PCP Internal Medicine Infectious Disease; Visit Provider Internal Medicine Hematology & Oncology
DX: C50.511 Malignant neoplasm of lower-outer quadrant of right female breast (principal); J43.9 Emphysema, unspecified; R91.8 Other nonspecific abnormal finding of lung field; R59.0 Localized enlarged lymph nodes
CPT/HCPCS: 78815; A9552